=== PATIENT | male | born 1955 | race Caucasian/White ===

== ENCOUNTER 2017-05-16 06:49 | Day surgery (SDC) | payer BC ==
[2017-05-11 13:30] VITALS: BMI 21.2
[2017-05-16] MEDS ORDERED: Iodixanol 320 MG/ML 200 ML BOTTLE IV ONE (07:01)
[2017-05-16] MEDS ORDERED: Iodixanol 320 mg/ml 150 ml Bottle IV ONE (07:01)
[2017-05-16] MEDS ORDERED: Lidocaine 2% Inj (20ml) ONE (07:05)
[2017-05-16] MEDS ORDERED: Iodixanol 320 MG/ML 100 ML BOTTLE IV ONE (07:06)
[2017-05-16] MEDS ORDERED: Midazolam 2 MG/2 ML VIAL ONE ×3 (07:06→08:25)
[2017-05-16] MEDS ORDERED: Nitroglycerin 50mg in D5W 50 MG/250 ML BOTTLE IV ONE (07:06)
[2017-05-16 07:19] LABS: BASO # 0.02 K/mm3 (0.0-2.0); BASO % 0.3 % (0.0-3.0); EOS # 0.1 (0.0-0.7); EOS % 1.5 % (1.5-5.0); GRAN # 4.95 (1.4-6.5); LYMPH # 1.9 (1.2-3.4); LYMPH % 25.2 % (22.0-35.0); MEAN CELL VOLUME 83.2 fl (80.0-105.0); MEAN CORPUSCULAR HEMOGLOBIN 27.6 pg (25.0-35.0); MEAN CORPUSCULAR HGB CONC 33.2 g/dl (31.0-37.0); MEAN PLATELET VOLUME 11.1 fl (7.0-11.0); MONO # 0.4 (0.1-0.6); PLATELET COUNT 270 10^3/uL (120.0-450.0); RBC 4.71 10^6/uL (3.5-6.1); RED CELL DISTRIBUTION WIDTH 13.5 % (11.5-14.5); WHITE BLOOD COUNT 7.4 10^3/ul (4.5-11.0)
[2017-05-16 07:27] LABS: INR 0.99 (0.93-1.08); PARTIAL THROMBOPLASTIN TIME 28.6 Seconds (23.7-30.8); PROTHROMBIN TIME 10.7 Seconds (9.9-11.8)
[2017-05-16 07:30] LABS: BLOOD UREA NITROGEN 26 mg/dL (7-21); CALCIUM 9.7 mg/dL (8.4-10.5); GFR AFRICAN-AMERICAN > 60; GFR NON-AFRICAN AMERICAN > 60
[2017-05-16] MEDS ORDERED: Oxycodone/Acetaminophen 5/325 mg Tab PO PRN (10:28)
[2017-05-16] MEDS ORDERED: Sodium Chloride 0.45% 1,000 ML IV SCH (10:30)
[2017-05-16 11:03] VITALS: TEMP 98.6; O2SAT 99
[2017-05-16 13:02] VITALS: PULSE 76; RESP 18
[2017-05-16 15:36] VITALS: BP 128/76
--- NOTE | 2017-05-16 20:02 | VASCULAR ---
PROCEDURE: 1. Abdominal aortogram and bilateral lower extremity runoff with left selective views. 2. Long segment left SFA silver Hawk atherectomy, drug-eluting balloon angioplasty, and stent/stent graft placement HISTORY: Diabetes. Ischemic ulceration left great toe. Severe PVD. PHYSICIAN(S): Felipe Ochoa M.D. TECHNIQUE: The relative risks and indications of the procedure were explained to the patient and consent obtained. The patient was hydrated prior to the procedure and the appropriate labs drawn. The patient was placed supine on the arteriogram table and the right groin prepped and draped in the usual sterile fashion. Conscious sedation and monitoring were provided throughout the procedure by a nurse. Via a right common femoral artery approach, a 5 Croatian sheath was placed in the right groin. Through the sheath and over a guidewire, a 5 Croatian flush catheter was placed in the abdominal aorta at the level of the renal arteries and a PA DSA abdominal aortogram performed. The catheter was pulled down to the aortic bifurcation and bilateral oblique DSA pelvic arteriograms performed. Overlapping bilateral lower extremity DSA arteriograms were obtained from the inguinal ligaments to the ankles A 0.035 angled Glidewire was advanced over the bifurcation and placed in the proximal left profunda femoral artery.. A 7 Croatian 45 cm destination sheath was placed in the left external iliac artery.. The long segment left SFA occlusion was crossed rather easily with 6 Croatian Wildcat catheter. 0.014 support wire was placed in the proximal left peroneal artery. Heparin 6000 units IV and nitroglycerin in 250 mcg aliquots were given. Long segment silver Hawk atherectomy of the left SFA was performed with an LX catheter. 4 passes were performed. Antegrade flow was established with a suboptimal angiographic result. The left SFA was dilated with overlapping 6 and 7 mm drug-eluting balloons. A suboptimal result was obtained with slow antegrade flow. 7 mm x 10 cm Viabahn stent graft was deployed at the origin of the left SFA. A dissection was seen at the distal end of the stent. Subsequently a 6.5 by 100 mm Supera stent was deployed in the proximal to mid left SFA. Once again there was a narrowing versus thrombus at the distal end of the stent. Finally a 6.0 x 150 Viabahn stent graft was deployed in the mid left SFA. The stent/stent grafts were dilated with a 7 mm balloon. Completion angiograms were obtained. The sheath was removed hemostasis obtained with a Perclose device. The patient tolerated the procedure well. FINDINGS: There is a single right renal artery and 2 left renal arteries present which widely patent. Aorta is calcified and patent. The aortic bifurcation is patent. The common external iliac arteries are patent on two views. The internal iliac arteries are diseased but patent. Right lower extremity: The right common femoral artery is patent. The right profunda femoral artery is patent. The right superficial femoral artery is smoothly calcified and patent without radiographically significant stenosis. The right popliteal artery is patent and continuous. There is moderate to severe right trifurcation and tibial occlusive disease. Right anterior tibial artery is calcified and fill slowly. It appears to be continuous. The right posterior tibial artery appears to occlude in its mid segment. Left lower extremity: Left common femoral artery is patent. The left profunda femoral artery is hypertrophied.. There is a long segment occlusion of the left SFA 2 cm from its origin. The left SFA reconstitutes in the adductor canal. To mild stenoses of the left popliteal artery above the knee is noted. The left popliteal artery is continuous. Once again there is severe left trifurcation and tibial occlusive disease. Left posterior tibial artery occludes in its mid segment. The left peroneal artery occludes its mid segment. The left anterior tibial artery is calcified but continuous. The left dorsalis pedis artery is calcified small but patent. There is severe pedal occlusive disease. At the arch is not opacified. Small collaterals are present.. IMPRESSION: 1.Successful long segment left SFA recanalization utilizing silver Hawk atherectomy, drug-eluting balloon angioplasty, and stent/stent graft placement as described above. 2. 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
== END 2017-05-16 15:30 | disposition home or self-care (01) ==
LOC: SDSVAS 06:49
PROVIDERS: ATTEND Radiology Vascular & Interventional Radiology
DX: L97.529 Non-pressure chronic ulcer of other part of left foot with unspecified severity (principal); I73.9 Peripheral vascular disease, unspecified; E11.621 Type 2 diabetes mellitus with foot ulcer; Z95.1 Presence of aortocoronary bypass graft; E78.5 Hyperlipidemia, unspecified
CPT/HCPCS: 36415; 37227; 75625; 75716; 80048; 85025; 85610; 85730; 99152; 99153; C1714; C1725 ×5; C1760; C1769 ×4; C1876 ×3; C1887 ×4; C1894; J0360; J0690; J1644 ×2; J2250; J2405; J3010; J7030; Q9967

== ENCOUNTER 2017-07-10 13:23 | Day surgery (SDC) | payer BC ==
[2017-07-10 15:50] VITALS: BMI 21.2
--- NOTE | 2017-07-10 15:50 | CP.SDSHP ---
<Saulo Sagastume - Last Filed: 07/10/17 17:33> Same Day Surgery H & P - History Proposed Procedure: left hallux amputation Pre-Op Diagnosis: left hallux osteomyelitis - Previous Medical/Surgical History Cardiac: Hypertension, ASHD/CAD Endocrine/Metabolic: Thyroid Disease Pain: 0. No Pain - Allergies Allergies: Allergies No Known Allergies Allergy (Verified 08/03/13 09:21) - Physical Exam Vital Signs: Vital Signs 07/10/17 14:36 Temperature 98.6 F Pulse Rate 74 Respiratory 18 Rate Blood Pressure 173/80 H O2 Sat by Pulse 97 Oximetry Mental Status: Alert & Oriented x3 - Impression Impression: Pt was seen and examined in SDS. Pt NPO status was confirmed. All Pre-op testing and clearance was in the chart. Pt has exhausted all conservative treatment at this time and is opting for surgical intervention. Pt was explained procedure and post-operative course. All pt's questions were answered to satisfaction. No guarantees were made. Pt understands all risks, benefits and complications of procedure. Pt will follow-up with Dr. Alva - Date & Time Date: 07/10/17 Time: 16:00 Short Stay Discharge - Short Stay Discharge Admitting Diagnosis/Reason for Visit: OSTEOMYELITIS M86.12 Disposition: HOME/ ROUTINE Referrals: Jasmeet ARCE,ANICETO Soria [Primary Care Provider] - Instructions: Ciprofloxacin (By mouth), Oxycodone/Acetaminophen (By mouth) Additional Instructions (Diet, Activity): --Patient in good/stable condition for discharge home. Pt to resume medications per medical reconciliation. Resume regular diet. Please keep dressing clean, dry, & intact to surgical site, use plastic bag over bandage for showering, wear post op shoe at all times when ambulating, call clinic if you see signs of infection (redness, swelling, malodor), please make an appointment to see Dr. Alva in office/clinic within 1 week for post-op check. Progress Note/Discharge Note with Instructions: - Patient evaluated bedside in recovery s/p surgical procedure. - After surgical procedure patient in NAD - (+) Void, (+) Appetite - Capillary refill time <3s and NVSI intact. - Patient denies complaints at this time - Post operative instructions and plan of care explained to patient at length. - Pt. acknowledges understanding. - Patient stable for DC per podiatric surgery <Loc Alva - Last Filed: 07/10/17 20:07> Same Day Surgery H & P - Allergies Allergies: Allergies No Known Allergies Allergy (Verified 08/03/13 09:21) - Physical Exam Vital Signs: Vital Signs 07/10/17 07/10/17 07/10/17 14:36 17:20 17:35 Temperature 98.6 F 98.2 F 98.2 F Pulse Rate 74 65 66 Respiratory 18 14 14 Rate Blood Pressure 173/80 H 182/87 H 194/92 H O2 Sat by Pulse 97 99 99 Oximetry 07/10/17 07/10/17 07/10/17 17:50 18:15 18:48 Temperature 98.2 F 97.7 F 98 F Pulse Rate 66 71 70 Respiratory 14 20 18 Rate Blood Pressure 179/89 H 172/81 H 170/67 H O2 Sat by Pulse 99 99 99 Oximetry Attending/Attestation - Attestation I have personally seen and examined this patient.: Yes I have fully participated in the care of the patient.: Yes I have reviewed all pertinent clinical information: Yes
[2017-07-10] MEDS ORDERED: Bupivacaine 0.5% Inj(30mL) ONE (15:55)
[2017-07-10] MEDS ORDERED: Lidocaine 2% Inj (20ml) ONE (15:55)
[2017-07-10] MEDS ORDERED: Midazolam 2 MG/2 ML VIAL ONE (15:58)
[2017-07-10] MEDS ORDERED: Lidocaine 1% Inj (20ml) ONE (15:58)
[2017-07-10] MEDS ORDERED: Propofol 10 mg/ml Inj (20 ML) ONE (15:58)
[2017-07-10] MEDS ORDERED: Labetalol 5 mg/ml Inj 20ML ONE (16:49)
[2017-07-10] MEDS ORDERED: HYDROmorphone 0.5 mg/0.5 ml ISec IVP PRN (17:27)
[2017-07-10] MEDS ORDERED: Oxycodone/Acetaminophen 5/325 mg Tab PO PRN ×2 (17:29)
[2017-07-10] MEDS ORDERED: Lactated Ringer's 1,000 ML IV SCH (17:30)
[2017-07-10 17:42] VITALS: O2SAT 99
--- NOTE | 2017-07-10 18:06 | RAD ---
PROCEDURE: Left Foot Radiographs. HISTORY: s/p left foot surgery COMPARISON: Preoperative examination 05/15/2017 FINDINGS: BONES: Status post amputation left 1st digit. No acute osseous findings. JOINTS: Normal. SOFT TISSUES: Soft tissue swelling at the surgical site. OTHER FINDINGS: Incompletely visualized hardware distal left fibula. IMPRESSION: Satisfactory postoperative status.
[2017-07-10 18:51] VITALS: BP 170/67; PULSE 70; RESP 18; TEMP 98
--- NOTE | 2017-07-10 21:37 | PCM.SURG1 ---
<Saulo Sagastume - Last Filed: 07/10/17 21:34> Surgeon's Initial Post Op Note - Surgeon's Notes Surgeon: Dr. Alva DPM Supervisor Lead Burning: Dr. Saulo Sagastume DPTess PGY-1 Type of Anesthesia: MAC, Local Anesthesia Administered By: Dr. Crawford Pre-Operative Diagnosis: left hallux osteomyelitis Operative Findings: see dication. 13 cc of 1:1 .5% marcaine plain and 2% lidocaine plain, 2-0 vicryl, 3-0 nylon, chan Post-Operative Diagnosis: left hallux osteomyelitis Operation Performed: left hallux amputation secondary to osteomyelitis Specimen/Specimens Removed: bone Estimated Blood Loss: EBL {In ML}: 15 Blood Products Given: N/A Drains Used: No Drains Post-Op Condition: Good Date of Surgery/Procedure: 07/10/17 Time of Surgery/Procedure: 16:00 <Loc Alva - Last Filed: 07/11/17 07:33> Attending/Attestation - Attestation I have personally seen and examined this patient.: Yes I have fully participated in the care of the patient.: Yes I have reviewed all pertinent clinical information: Yes
--- NOTE | 2017-07-10 22:41 | OP ---
PROCEDURE DATE: 07/10/2017 PREOPERATIVE DIAGNOSIS: Left first hallux osteomyelitis. POSTOPERATIVE DIAGNOSIS: Left first hallux osteomyelitis. PROCEDURE: First hallux implication secondary to osteomyelitis. SURGEON: Loc Alva DPM CLERICAL OFFICE WORKER: Saulo Sagastume DPM TYPE OF ANESTHESIA: IV anesthesia local. ANESTHESIA ADMINISTERED BY: Lakhwinder Crawford MD INDICATION: The patient is a 62-year-old male with the above diagnosis. The patient has his all conservative treatment at this time and that would require surgical intervention. The patient signed the consent after careful explanation of risks, benefits, complications and alternatives for surgical procedure. No guarantees were given nor implied. N.p.o. status was confirmed prior to taking the patient to the OR. PREPARATION: The patient was brought in to the operating room and placed on the operating room table in a supine position. Time-out was performed for identification of the correct patient and procedure. After induction of IV sedation, the patient received a total of 12 mL of 1:1 mixture of 0.5% Marcaine plain and 2% lidocaine plain in a local block fashion to the left first hallux. The left foot was then prepped and draped in a normal sterile manner and the procedure began. No tourniquet was used during the procedure. DESCRIPTION OF PROCEDURE: Attention was then drawn to the dorsal aspect of the left first digit where racquet type incision was made circumferentially at the level distal to the first MPJ using a #15 blade. The incision was then extended down to the subcutaneous layers, down to the level of the bone using a pickup and towel clamp to stabilize the toe. The first hallux was then disarticulated from the foot at the level of the MPJ using a #15 blade and [place] [employer] scissor. The left hallux was then resected and passed from the operating field and sent to the pathology. During this time, using a fresh #15 blade, all necrotic and non-viable tissue was then excisionally divided from the surgical site. The wound was copiously flushed with sterile saline, then the capsule of the MPJ was reapproximate using a 2-0 Vicryl and simple sutures. Next, flexor hallucis longus and the extensor hallucis longus was tensioned and reapproximated together using a Vicryl 2-0 in simple sutures technique. Excess tendon was then cut using a dissecting scissors. Next, the flap was debulked using a dissecting scissors and grade #15 and pickup. All bleeders were cauterized and ligated as necessary. Next, the wound was copiously flushed with sterile saline. Next, utilizing a 2-0 Vicryl and subcutaneous tissue was reapproximated. Next, skin layers were then reapproximated and coapted using a 3-0 nylon using a horizontal mattress in simple suture technique. The skin layers were reinforced using chan along the surgical excision. The left foot was then dressed with Betadine silicic acid, 4x4 gauze, Kerlix, and Coban lightly wrapped around the entire left foot. POSTOPERATIVE CONDITION: The patient tolerated the anesthesia and procedure well and was escorted to the recovery room with the vital signs stable and neurovascular status intact to the left foot. The patient will follow up with Dr. Alva upon discharge. Saulo Sagastume DPM Loc Alva DPM MTDCristhian
--- NOTE | 2017-07-18 00:05 | CP.PCM.PN ---
Subjective - Date & Time of Evaluation Date of Evaluation: 07/17/17 Time of Evaluation: 10:45 - Subjective Subjective: Pt seen at the request of his RN for tachycardia and shaking chills. He is S/P amputation of the L 1st toe and was admitted for an infection at the surgical site,dizziness,syncope and weakness. Chart reviewed. VS: HR [id number]/min is now 116,Rectal temp is 103.6 RR is 22,BP 155/84 PMH:NIDDM,HTN,CAD,S/P Quadruple bypass,,angioplasty,PVD,S/P L lower ext. angioplasty Objective - Vital Signs/Intake and Output Vital Signs (last 24 hours): Temp Pulse Resp BP Pulse Ox 98 F 70 18 170/67 H 99 07/10/17 18:48 07/10/17 18:48 07/10/17 18:48 07/10/17 18:48 07/10/17 18:48 Assessment and Plan - Assessment and Plan (Free Text) Assessment: Tachycardia and shaking chills secondary to fever Infected surgical site Plan: IV fluids,Tylenol and cooling blanket ordered. Pt is already on antibiotic,cultures have already been done.
== END 2017-07-10 19:00 | disposition home or self-care (01) ==
LOC: SDS 13:23
PROVIDERS: ATTEND Podiatrist
DX: E11.69 Type 2 diabetes mellitus with other specified complication (principal); M86.172 Other acute osteomyelitis, left ankle and foot; I25.10 Atherosclerotic heart disease of native coronary artery without angina pectoris; I10 Essential (primary) hypertension; E03.9 Hypothyroidism, unspecified
CPT/HCPCS: 28820; 73630; 88304; 88311; J1170; J2250; J2704; J3010; J7120 ×2

== ENCOUNTER 2017-07-17 11:54 | Inpatient (IN) | payer BC ==
--- NOTE | 2017-07-17 12:19 | ED PDOC ---
Arrival/HPI - General Historian: Patient, Spouse - History of Present Illness Time/Duration: Prior to Arrival Symptom Onset: Sudden Symptom Course: Improving Quality: Other (dizzy) Severity Level: Moderate Activities at Onset: Rest Context: Sitting <Jaylin Srinivasan - Last Filed: 07/17/17 14:21> <HeideMaryellen - Last Filed: 07/17/17 15:14> - General Chief Complaint: Syncope Time Seen by Provider: 07/17/17 11:56 - History of Present Illness Narrative History of Present Illness (Text): 07/17/17 12:15 MANNEQUIN MOLDER from wound care center 62M w/PMH for L foot infection s/p hallux amputation, DM, HTN, CAD s/p CABG evaluated s/p MANNEQUIN MOLDER in wound care center. Pt reports feeling generally weak, had amputation last Sunday, took Percocet at 10am today, arrived to his 10:45 wound care appointment without incident. Had wound cleaned. After transfer to a wheelchair for departure, pt reports he felt dizzy- room was spinning around him, reports facial color went garcia. Pt was brought to ED for further evaluation and possible admission for L foot infection. Denies N/V/F/C, SOB, CP , palpitations, SUN, vision changes, changes to bowel or bladder habits, numbness or tingling of extremities, other complaints. PMH: Left foot infection, DM, HTN, CAD PSH: CABG (4 vessel), L hallux amputation, angioplasty of LLE All: NKDA SH: Denies tobacco, ETOH or illicit drug use PMD: [facility] (Jaylin Srinivasan) Past Medical History - Provider Review Nursing Documentation Reviewed: Yes - Infectious Disease Hx of Infectious Diseases: None - Tetanus Immunization Tetanus Immunization: Unknown - Cardiac Hx Pacemaker: No - Neurological Hx Paralysis: No - Hematological/Oncological Hx Blood Transfusions: No - Musculoskeletal/Rheumatological Hx Musculoskeletal Disorders: No - Psychiatric Hx Emotional Abuse: No Hx Physical Abuse: No Hx Substance Use: No - Surgical History Hx Open Heart Surgery: Yes (09/27/12) Hx Orthopedic Surgery: Yes - Anesthesia Hx Anesthesia Reactions: No Hx Malignant Hyperthermia: No - Suicidal Assessment Feels Threatened In Home Enviroment: No <Jaylin Srinivasan - Last Filed: 07/17/17 14:21> Family/Social History - Physician Review Nursing Documentation Reviewed: Yes Family/Social History: No Known Family HX Hx Alcohol Use: No Hx Substance Use: No Hx Substance Use Treatment: No <Jaylin Srinivasan - Last Filed: 07/17/17 14:21> Allergies/Home Meds <Jaylin Srinivasan - Last Filed: 07/17/17 14:21> <Maryellen Jaeger - Last Filed: 07/17/17 15:14> Allergies/Adverse Reactions: Allergies No Known Allergies Allergy (Verified 08/03/13 09:21) Home Medications: Home Meds Medication Instructions Recorded Confirmed Tamsulosin [Flomax] 0.4 mg PO DAILY 08/03/13 07/10/17 Aspirin [Ecotrin] 81 mg PO DAILY 05/15/17 07/03/17 Glimepiride [Amaryl] 4 mg PO DAILY 05/15/17 07/10/17 Insulin Glargine,Hum.rec.anlog 30 unit SQ HS 05/15/17 07/10/17 [Toujeo Solostar] Levothyroxine [Synthroid] 100 mcg PO QAM 05/15/17 07/10/17 SITagliptin [Januvia] 100 mg PO DAILY 05/15/17 07/10/17 Ciprofloxacin [Cipro] 500 mg PO BID 07/03/17 07/10/17 oxyCODONE/Acetaminophen 1/2TAB 0.5 ea PO Q6 MDD 4 07/10/17 07/10/17 [Percocet 5-325 mg HALF TAB] Review of Systems - Physician Review All systems were reviewed & negative as marked: Yes - Review of Systems Constitutional: Fatigue. absent: Normal, Fevers Eyes: absent: Vision Changes ENT: Normal. absent: Sore Throat, Rhinorrhea Respiratory: Normal. absent: SOB, Cough Cardiovascular: Syncope (near). absent: Normal, Chest Pain, Palpitations Gastrointestinal: Normal. absent: Abdominal Pain, Constipation, Diarrhea, Nausea, Vomiting, Appetite Changes Genitourinary Male: Normal. absent: Hematuria Musculoskeletal: Other (L foot pain ). absent: Normal Skin: Other (infection of L foot). absent: Normal Neurological: Dizziness. absent: Normal, Headache, Focal Weakness, Speech Changes, Facial Droop Endocrine: Normal. absent: Diaphoresis <Jaylin Srinivasan - Last Filed: 07/17/17 14:21> Physical Exam Appearance: Positive for: Non-Toxic, Comfortable Pain Distress: None Mental Status: Positive for: Alert and Oriented X 3 Finger Stick Blood Glucose: 158 - Systems Exam Head: Present: Atraumatic, Normocephalic Extroacular Muscles: Present: EOMI Conjunctiva: Present: Normal Mouth: Present: Moist Mucous Membranes Nose (External): Present: Atraumatic Neck: Present: Normal Range of Motion Respiratory/Chest: Present: Clear to Auscultation, Good Air Exchange. No: Respiratory Distress, Accessory Muscle Use Cardiovascular: Present: Regular Rate and Rhythm, Normal S1, S2. No: Murmurs Abdomen: Present: Normal Bowel Sounds. No: Tenderness, Distention, Peritoneal Signs Back: Present: Normal Inspection. No: CVA Tenderness Upper Extremity: Present: Normal Inspection. No: Cyanosis, Edema Lower Extremity: No: Normal Inspection (Left foot with dressing in place - C/D/I ), Edema, Tenderness Neurological: Present: GCS=15, CN II-XII Intact, Speech Normal Skin: Present: Warm, Dry, Pale, Other (Well healed midline chest incision). No : Rashes Psychiatric: Present: Alert, Oriented x 3, Normal Insight, Normal Concentration <Jaylin Srinivasan - Last Filed: 07/17/17 14:21> Vital Signs Reviewed: Yes Temperature: Afebrile Blood Pressure: Hypotensive Pulse: Regular Respiratory Rate: Normal <Maryellen Jaeger - Last Filed: 07/17/17 15:14> Vital Signs Temp Pulse Resp BP Pulse Ox 07/17/17 14:35 98.6 F 72 17 106/78 100 07/17/17 13:23 98.6 F 78 17 105/58 L 100 Medical Decision Making <Jaylin Srinivasan - Last Filed: 07/17/17 14:21> <Maryellen Jaeger - Last Filed: 07/17/17 15:14> ED Course and Treatment: 07/17/17 12:22 ED attending discussed case with Dr. Alva- reports that pt has purulent drainage from left hallux amputation site with erythema, will likely need IV ABx. 07/17/17 12:23 Will order labs to evaluate for infection, CT brain & cardiac iso for near syncope. (Jaylin Srinivasan) A 62 year old male with fatigue and dizziness and infected wound. In agreement with resident note, which includes further HPI details. Patient was seen and evaluated with resident, came up with plan and treatment together. 07/17/17 14:35 Patient with osteomyelitis s/p surgery with persisting infection, needing iv antibiotics as per Dr. Alva's eval. Patient also with near syncopal episode which will need further eval; initial CE negative; ekg nondiagnostic; will need placement on tele for further monitoring, eval, and treatment. Case discussed with Dr. Couch, as patient is a [facility] patient. 07/17/17 15:10 (Maryellen Jaeger) - Lab Interpretations Lab Results: 07/17/17 12:35 07/17/17 12:35 Lab Results 07/17/17 12:35: Sodium 140, Potassium 4.8, Chloride 100, Carbon Dioxide 27, Anion Gap 18, BUN 18, Creatinine 1.2, Est GFR ( Amer) > 60, Est GFR (Non- Af Amer) > 60, Random Glucose 170 H, Calcium 9.7, Total Bilirubin 1.0, AST 27, ALT 28, Alkaline Phosphatase 91, Lactate Dehydrogenase 340, Total Creatine Kinase 47, Troponin I < 0.01, Total Protein 8.1, Albumin 4.2, Globulin 3.9, Albumin/Globulin Ratio 1.1 07/17/17 12:35: WBC 10.3 D, RBC 3.72, Hgb 9.8 L D, Hct 30.4 L, MCV 81.7, MCH 26.3, MCHC 32.2, RDW 14.1, Plt Count 254, MPV 10.4, Gran % 76.0 H, Lymph % (Auto ) 15.0 L, [place] % (Auto) 8.2 H, Eos % (Auto) 0.6 L, Baso % (Auto) 0.2, Gran # 7.82 H, Lymph # 1.5, [place] # 0.8 H, Eos # 0.1, Baso # 0.02 07/17/17 10:17: Urine Color Yellow, Urine Appearance Clear, Urine pH 6.0, Ur Specific [place] 1.025, Urine Protein Trace H, Urine Glucose (UA) Negative, Urine Ketones Negative, Urine Blood Negative, Urine Nitrate Negative, Urine Bilirubin Negative, Urine Urobilinogen 0.2, Ur Leukocyte Esterase Negative, Urine RBC 0 - 2, Urine WBC 2 - 5, Ur Epithelial Cells 1 - 3, Urine Bacteria Few - RAD Interpretation Radiology Orders: 07/17/17 12:14 Brain [HEAD W/O CONTRAST] [CT] Stat 07/17/17 12:48 CHEST TWO VIEWS (PA/LAT) [RAD] Stat - EKG Interpretation EKG Interpretation (Text): 07/17/17 15:11 NSR @ 62; normal intervals; normal axis; no MIKE; <1/[address] dep inferiorly; unable to view old ekg. (Maryellen Jaeger) - Medication Orders Current Medication Orders: Aspirin (Ecotrin) 81 mg PO DAILY MADHU Last Admin: 07/17/17 14:16 Dose: Glimepiride (Amaryl) 4 mg PO DAILY MADHU Piperacillin Sod/Tazobactam Sod (Zosyn 3.375 In Ns 100ml) 100 mls @ 200 mls/hr IVPB Q8 MADHU PRN Reason: Protocol Stop: 07/17/17 22:29 Last Admin: 07/17/17 14:15 Dose: Insulin Human Lispro (Humalog High) 0 units SC ACHS MADHU PRN Reason: Protocol Levothyroxine Sodium (Synthroid) 100 mcg PO QAM MADHU Oxycodone/Acetaminophen (Percocet 5/325 Mg Tab) 0.5 tab PO Q6 MADHU Stop: 07/20/17 18:01 Sitagliptin Phosphate (Januvia) 100 mg PO DAILY MADHU Last Admin: 07/17/17 14:17 Dose: Tamsulosin HCl (Flomax) 0.4 mg PO DAILY MADHU Last Admin: 07/17/17 14:17 Dose: Discontinued Medications Vancomycin HCl 1 gm/ Sodium (Chloride) 250 mls @ 133.333 mls/hr IV STAT STA PRN Reason: Protocol Stop: 07/17/17 14:40 Last Admin: 07/17/17 13:31 Dose: 133.333 mls/hr eMAR Start Stop Document 07/17/17 13:31 IT (Rec: 07/17/17 13:31 IT [id number]) Intravenous Solution Start Date 07/17/17 Start Time 13:31 End Date 07/17/17 End time 15:31 Total Infusion Time 120 Piperacillin Sod/Tazobactam Sod (Zosyn 3.375 In Ns 100ml) 100 mls @ 200 mls/hr IVPB STAT STA PRN Reason: Protocol Stop: 07/17/17 13:18 Last Admin: 07/17/17 12:55 Dose: 200 mls/hr eMAR Start Stop Document 07/17/17 12:55 IT (Rec: 07/17/17 12:56 IT [id number]) Intravenous Solution Start Date 07/17/17 Start Time 12:55 End Date 07/17/17 End time 13:25 Total Infusion Time 30 - PA / DAIRY FEED WORKER / Resident Statement / has reviewed & agrees with the documentation as recorded. / has examined the patient and agrees with the treatment plan. <Maryellen Jaeger - Last Filed: 07/17/17 15:14> Disposition/Present on Arrival - Present on Arrival Any Indicators Present on Arrival: Yes History of DVT/PE: No History of Uncontrolled Diabetes: Yes Urinary Catheter: No History Surgical Site Infection Following: None - Disposition Have Diagnosis and Disposition been Completed?: Yes Disposition Time: 14:21 Patient Plan: Admission <Jaylin Srinivasan - Last Filed: 07/17/17 14:21> - Present on Arrival Any Indicators Present on Arrival: No - Disposition Have Diagnosis and Disposition been Completed?: Yes Disposition Time: 13:00 Patient Plan: Admission, Telemetry <Maryellen Jaeger - Last Filed: 07/17/17 15:14> - Disposition Diagnosis: Infection of left foot, Near syncope Disposition: HOSPITALIZED Patient Problems: Current Active Problems Problem Status Onset Infection of left foot Acute Near syncope Acute Condition: FAIR
[2017-07-17 12:42] LABS: BASO # 0.02 K/mm3 (0.0-2.0); BASO % 0.2 % (0.0-3.0); EOS # 0.1 (0.0-0.7); EOS % 0.6 % (1.5-5.0); GRAN # 7.82 (1.4-6.5); HEMATOCRIT 30.4 % (42.0-52.0); LYMPH # 1.5 (1.2-3.4); MEAN CELL VOLUME 81.7 fl (80.0-105.0); MEAN CORPUSCULAR HEMOGLOBIN 26.3 pg (25.0-35.0); MEAN CORPUSCULAR HGB CONC 32.2 g/dl (31.0-37.0); MEAN PLATELET VOLUME 10.4 fl (7.0-11.0); MONO # 0.8 (0.1-0.6); MONO % 8.2 % (1.0-6.0); RED CELL DISTRIBUTION WIDTH 14.1 % (11.5-14.5); WHITE BLOOD COUNT 10.3 10^3/ul (4.5-11.0)
[2017-07-17 12:48] LABS: ALB/GLOB RATIO 1.1 (1.1-1.8); ALKALINE PHOSPHATASE 91 U/L (38-126); ALT/SGPT 28 U/L (7-56); AST/SGOT 27 U/L (17-59); BLOOD UREA NITROGEN 18 mg/dL (7-21); CALCIUM 9.7 mg/dL (8.4-10.5); CARBON DIOXIDE 27 mmol/L (21-33); CHLORIDE 100 mmol/L (98-107); GFR AFRICAN-AMERICAN > 60; GLUCOSE,RANDOM 170 mg/dL (70-110); POTASSIUM 4.8 mmol/L (3.6-5.0); SODIUM 140 mmol/L (132-148); TOTAL PROTEIN 8.1 g/dL (5.8-8.3)
[2017-07-17] MEDS ORDERED: Piperacillin/Tazobact 3.375 gm 100 ML IVPB STA (12:49)
[2017-07-17 13:01] LABS: TROPONIN I < 0.01 ng/mL
[2017-07-17 13:36] LABS: URINE BILIRUBIN NEGATIVE (NEGATIVE); URINE BLOOD NEGATIVE (NEGATIVE); URINE GLUCOSE (UA) NEGATIVE (NEGATIVE); URINE KETONE NEGATIVE (NEGATIVE); URINE LEUKOCYTE ESTERASE NEGATIVE Leu/uL (NEGATIVE); URINE PROTEIN TRACE mg/dL (<30 mg/dL); URINE UROBILINOGEN 0.2 E.U./dL (<1 E.U./dL)
[2017-07-17 13:37] LABS: URINE APPEARANCE CLEAR (CLEAR); URINE COLOR YELLOW (YELLOW)
[2017-07-17 13:53] LABS: URINE BACTERIA FEW (NEG); URINE RBC 0 - 2 /hpf (0-2)
[2017-07-17] MEDS ORDERED: Piperacillin/Tazobact 3.375 gm 100 ML IVPB SCH (14:00)
--- NOTE | 2017-07-17 17:02 | RAD ---
HISTORY: LE infection COMPARISON: No prior. TECHNIQUE: Chest PA and lateral FINDINGS: LUNGS: No active pulmonary disease. PLEURA: No significant pleural effusion identified. No pneumothorax apparent. CARDIOVASCULAR: Status post CABG. Normal heart size. No congestive change. OSSEOUS STRUCTURES: No significant abnormalities. VISUALIZED UPPER ABDOMEN: Normal. OTHER FINDINGS: None. IMPRESSION: No active disease.
--- NOTE | 2017-07-17 17:14 | US ---
PROCEDURE: Bilateral carotid artery duplex ultrasound HISTORY: Carotid stenosis syncope. PHYSICIAN(S): Felipe Ochoa MD. TECHNIQUE: Duplex sonography and color-flow Doppler were used to evaluate the carotid bifurcations and limited segments of the vertebral arteries bilaterally. FINDINGS: There is mild smooth heterogeneous plaque noted at the carotid bifurcations bilaterally. The peak systolic velocity in the proximal right internal carotid artery is 100 cm/sec. This corresponds to a 20 to 39% proximal right ICA stenosis. Normal systolic velocities are noted in the proximal right external carotid artery. The right vertebral artery is not visualized and may be occluded The peak systolic velocity in the proximal left internal carotid artery is 97 cm/sec. This corresponds to a 20 to 39% proximal left ICA stenosis. Normal systolic velocities are noted in the proximal left external carotid artery. There is antegrade flow in the dominant left vertebral artery. IMPRESSION: 1. Bilateral 20-39% proximal ICA stenoses. 2. Antegrade flow in the left vertebral artery. The right vertebral artery is not visualized and may be occluded
[2017-07-17] MEDS: Oxycodone/Acetaminophen 5/325 mg Tab PO SCH (18:02)
[2017-07-17] MEDS: Insulin Lispro (HUMAlog) HIGH Coverage SC SCH ×2 (18:03→22:00)
[2017-07-17 18:19] VITALS: BMI 20.9
[2017-07-17] MEDS: Vancomycin 1gm in NS 250ml 1 GM/250 ML BAG IVPB SCH (19:32)
--- NOTE | 2017-07-17 21:03 | HP ---
HISTORY OF PRESENT ILLNESS: The patient is 62 years old, who was referred by Dr. Alva for admission. On his way from wound care center to the ER, he fainted and felt dizzy and so rapid response was called and he was brought to emergency room. According to the patient, he is feeling very weak. He had amputation done almost a week ago. He was here for followup in wound care center. When he was being transferred to wheelchair was accompanying and saw that he was very pale and minimally responsive, so he was brought to emergency room for further evaluation. He has no history of fever or chills, no history of nausea or vomiting, no history of hemoptysis or hematemesis. PAST MEDICAL HISTORY: Significant for recent left fourth toe amputation; non-insulin dependent diabetes; hypertension; coronary artery disease, status post angioplasty; he has had quadruple bypass; history of peripheral vascular disease, status post left lower extremity angioplasty. ALLERGIES: HE IS NOT ALLERGIC TO ANY MEDICATION. MEDICATION AT HOME: He is on Percocet, Flomax 0.4 daily, Januvia 100 mg daily, levothyroxine 100 mcg daily, glimepiride 4 mg daily, aspirin 81 daily, Toujeo 30 units at bedtime, Cipro 500 twice a day. SOCIAL HISTORY: He is , lives with his . Denies smoking, drinking or alcohol use. REVIEW OF SYSTEMS: Significant for generalized weakness. PHYSICAL EXAMINATION: GENERAL: He is awake, alert, oriented, communicative. VITAL SIGNS: He is afebrile, pulse 72, respirations 17, blood pressure 106/70. LUNGS: Bilateral fair airflow. No rhonchi or crackle. HEART: S1 and S2 audible. ABDOMEN: Soft and nontender. No rebound, no guarding. NEUROLOGIC: The patient is awake, alert, oriented and communicative. LABORATORY DATA: WBC is 10.3, hemoglobin 9.8, hematocrit 30.4, platelet of 254. Chemistry: Sodium 140, potassium 4.8, chloride 100, CO2 of 27, BUN 18, creatinine 1.2, blood sugar of 170. Urinalysis is trace protein. ASSESSMENT: 1. Infected left surgical wound. 2. Syncope. 3. Hypertension. 4. Insulin-dependent diabetes. 5. Hyperlipidemia. 6. Coronary artery disease. 7. Peripheral vascular disease. PLAN: The patient will be admitted. Blood cultures and urine cultures are sent. We will start him empirically on IV antibiotic, I will order for carotid Doppler, order for CT scan of the brain and monitor his blood sugar, out to bed to chair. We will reevaluate the patient in a.m. Letty Couch MD
--- NOTE | 2017-07-17 22:03 | CARD ---
APPROVED REPORT EKG Measurement Heart [id number] CT [id number] <Conclusion> Normal sinus rhythm Normal ECG
[2017-07-17] MEDS: Sodium Chloride 0.45% 1,000 ML IV SCH (23:11)
[2017-07-17] MEDS: Piperacillin/Tazobact 3.375 gm 100 ML IVPB SCH (23:16)
--- NOTE | 2017-07-18 05:07 | CP.PCM.PN ---
Subjective - Date & Time of Evaluation Date of Evaluation: 07/17/17 Time of Evaluation: 23:58 - Subjective Subjective: Pt seen at the request of his RN for tachycardia and shaking chills. He is S/P amputation of the L 1st toe and was admitted for an infection at the surgical site,dizziness,syncope and weakness. Chart reviewed. VS: HR [id number]/min is now 116,Rectal temp is 103.6 RR is 22,BP 155/84 PMH:NIDDM,HTN,CAD,S/P Quadruple bypass,angioplasty,PVD,S/P L lower ext. angioplasty Objective - Vital Signs/Intake and Output Vital Signs (last 24 hours): Temp Pulse Resp BP Pulse Ox 98.5 F 93 H 20 117/63 97 07/18/17 02:00 07/18/17 02:00 07/18/17 02:00 07/18/17 02:00 07/17/17 23:35 - Medications Medications: Current Medications Aspirin (Ecotrin) 81 mg PO DAILY [facility] Last Admin: 07/17/17 14:16 Dose: Not Given Glimepiride (Amaryl) 4 mg PO DAILY [facility] Piperacillin Sod/Tazobactam Sod (Zosyn 3.375 In Ns 100ml) 100 mls @ 200 mls/hr IVPB Q6 [facility] PRN Reason: Protocol Stop: 07/25/17 00:01 Last Admin: 07/17/17 23:16 Dose: 200 mls/hr Vancomycin HCl (Vancomycin 1gm) 1 gm in 250 mls @ 167 mls/hr IVPB Q12H [facility] PRN Reason: Protocol Last Admin: 07/17/17 19:32 Dose: 167 mls/hr Sodium Chloride (Sodium Chloride 0.45%) 1,000 mls @ 100 mls/hr IV .Q10H [facility] Last Admin: 07/17/17 23:11 Dose: 100 mls/hr Insulin Human Lispro (Humalog High) 0 units SC ACHS [facility] PRN Reason: Protocol Last Admin: 07/17/17 22:00 Dose: Not Given Levothyroxine Sodium (Synthroid) 100 mcg PO QAM [facility] Oxycodone/Acetaminophen (Percocet 5/325 Mg Tab) 0.5 tab PO Q6 [facility] Stop: 07/20/17 18:01 Last Admin: 07/18/17 00:00 Dose: Not Given Sitagliptin Phosphate (Januvia) 100 mg PO DAILY [facility] Last Admin: 07/17/17 14:17 Dose: Not Given Tamsulosin HCl (Flomax) 0.4 mg PO DAILY [facility] Last Admin: 07/17/17 14:17 Dose: Not Given - Constitutional Appears: Toxic, Cachectic - Head Exam Head Exam: ATRAUMATIC, NORMAL INSPECTION, NORMOCEPHALIC - Eye Exam Eye Exam: Normal appearance, PERRL - ENT Exam ENT Exam: Mucous Membranes Dry - Neck Exam Neck Exam: Normal Inspection - Respiratory Exam Respiratory Exam: Clear to Ausculation Bilateral, NORMAL BREATHING PATTERN - Cardiovascular Exam Cardiovascular Exam: Tachycardia - GI/Abdominal Exam GI & Abdominal Exam: Soft, Normal Bowel Sounds. absent: Tenderness - Extremities Exam Extremities Exam: absent: Calf Tenderness Additional comments: Has a dressing on the L foot - Neurological Exam Neurological Exam: Alert, Awake, Oriented x3 - Psychiatric Exam Psychiatric exam: Normal Affect - Skin Skin Exam: Dry (skin is very warm to touch), Warm Assessment and Plan - Assessment and Plan (Free Text) Assessment: Tachycardia and shaking chills secondary to fever Infected surgical site Plan: Plan: IV fluids,Tylenol and cooling blanket ordered. Pt is already on antibiotic,cultures have already been done.
[2017-07-18] MEDS: Piperacillin/Tazobact 3.375 gm 100 ML IVPB SCH ×3 (06:16→19:17)
[2017-07-18] MEDS: Oxycodone/Acetaminophen 5/325 mg Tab PO SCH ×4 (06:19→19:17)
[2017-07-18] MEDS: Vancomycin 1gm in NS 250ml 1 GM/250 ML BAG IVPB SCH ×2 (07:11→20:37)
--- NOTE | 2017-07-18 08:26 | CP.PCM.CON ---
<Austin Yeager - Last Filed: 07/18/17 08:22> History of Present Illness - History of Present Illness History of Present Illness: Patient is a 62 year old male who is seen at bedside for a left infected foot 8 days s/p partial first ray resection of left foot. Patient was seen in the wound care center yesterday for his regularly scheduled appointment and underwent a syncopal episode before leaving. He was subsequently admitted to the hospital through the ED for monitoring. Patient states that he is feeling much better today. He denies any increased pain to his foot. He denies any further pedal complaints at this time. He denies lightheadedness, n/v/f/c/cp/ sob. Review of Systems - Review of Systems Review of Systems: ROS unremarkable outside of HPI Past Patient History - Infectious Disease Hx of Infectious Diseases: None - Tetanus Immunizations Tetanus Immunization: Unknown - Past Social History Smoking Status: Never Smoked - CARDIAC Hx Cardiac Disorders: Yes Hx Angina: Yes Hx Cardia Arrhythmia: No Hx Circulatory Problems: Yes Hx Congestive Heart Failure: No Hx Heart Murmur: No Hx Heart Transplant: No Hx Hypercholesterolemia: Yes Hx Hypertension: Yes Hx Internal Defibrillator: No Hx Mitral Valve Prolapse: No Hx Pacemaker: No Hx Peripheral Edema: No Hx Peripheral Vascular Disease: No - PULMONARY Hx Respiratory Disorders: No Hx Asthma: No Hx Bronchitis: No Hx Chronic Obstructive Pulmonary Disease (COPD): No Hx Emphysema: No Hx Pneumonia: No Hx Respiratory Aspiration: No Hx Respiratory Tract Infection: No Hx Sleep Apnea: No Hx Tuberculosis: No - NEUROLOGICAL Hx Neurological Disorder: No Hx Alzheimer's Disease: No HX Cerebrovascular Accident: No Hx Dementia: No Hx Dizziness: No Hx Meningitis: No Hx Migraine: No Hx Parkinson's Disease: No Hx Seizures: No Hx Transient Ischemic Attacks (TIA): No - HEENT Hx HEENT Problems: No Hx Blind: No Hx Cataracts: No Hx Deafness: No Hx Difficulty Chewing: No Hx Epistaxis: No Hx Glaucoma: No Hx Macular Degeneration: No - RENAL Hx Chronic Kidney Disease: No Hx Dialysis: No Hx Kidney Stones: No Hx Neurogenic Bladder: No Hx Pyelonephritis: No Hx Renal (Kidney) Cancer: No Hx Renal Failure: No - ENDOCRINE/METABOLIC Hx Endocrine Disorders: No Hx Adrenal Cancer: No Hx Diabetes Insipidus: No Hx Diabetes Mellitus Type 1: No Hx Diabetes Mellitus Type 2: No Hx Hyperthyroidism: No Hx Hypothyroidism: No Hx Systemic Lupus Erythematosus: No - HEMATOLOGICAL/ONCOLOGICAL Hx Blood Disorders: No Hx AIDS: No Hx Anemia: No Hx Cancer: No Hx Chemotherapy: No Hx Cirrhosis: No Hx Hemophilia: No Hx Hepatitis A: No Hx Hepatitis B: No Hx Hepatitis C: No Hx Human Immunodeficiency Virus (HIV): No Hx Metastesis: No Hx Shingles: No Hx Sickle Cell Disease: No Hx Unexplained Bleeding: No - INTEGUMENTARY Hx Dermatological Problems: No Hx Basil Cell: No Hx Eczema: No Hx Melanoma: No Hx Psoriasis: No Hx Squamous Cell: No - MUSCULOSKELETAL/RHEUMATOLOGICAL Hx Falls: No - GASTROINTESTINAL Hx Gastrointestinal Disorders: No Hx Colostomy: No Hx Crohn's Disease: No Hx Diverticulitis: No Hx Gall Bladder Disease: No Hx Gastroesophageal Reflux: No Hx Ileostomy: No Hx Liver Failure: No Hx Pancreatitis: No HX Swallowing Problems: No Hx Ulcer: No - GENITOURINARY/GYNECOLOGICAL Hx Genitourinary Disorders: No Hx Hematuria: No Hx Incontinence: No Hx Prostate Problems: Yes (turp) Hx Sexually Transmitted Disorders: No Hx Urinary Tract Infection: No - PSYCHIATRIC Hx Substance Use: No - SURGICAL HISTORY Hx Surgeries: Yes (yes) Hx Amputation: Yes (last week had 2nd toe amputated Lfoot) Hx Appendectomy: No Hx Cardiac Catheterization: No Hx Cholecystectomy: No Hx Coronary Stent: No Hx Gastric Bypass Surgery: No Hx Hysterectomy: No Hx Joint Replacement: No Hx Kidney Transplant: No Hx Liver Transplant: No Hx Mastectomy: No Hx Musculoskeletal Surgery: No Hx Open Heart Surgery: Yes Hx Orthopedic Surgery: No Hx Splenectomy: No Hx Valve Replacement: No - ANESTHESIA Hx Anesthesia Reactions: No Hx Malignant Hyperthermia: No Meds Allergies/Adverse Reactions: Allergies Allergy/AdvReac Type Severity Reaction Status Date / Time No Known Allergies Allergy Verified 08/03/13 09:21 - Medications Medications: Current Medications Aspirin (Ecotrin) 81 mg PO DAILY [facility] Last Admin: 07/17/17 14:16 Dose: Not Given Glimepiride (Amaryl) 4 mg PO DAILY [facility] Piperacillin Sod/Tazobactam Sod (Zosyn 3.375 In Ns 100ml) 100 mls @ 200 mls/hr IVPB Q6 [facility] PRN Reason: Protocol Stop: 07/25/17 00:01 Last Admin: 07/18/17 06:16 Dose: 200 mls/hr Vancomycin HCl (Vancomycin 1gm) 1 gm in 250 mls @ 167 mls/hr IVPB Q12H [facility] PRN Reason: Protocol Last Admin: 07/18/17 07:11 Dose: 167 mls/hr Sodium Chloride (Sodium Chloride 0.45%) 1,000 mls @ 100 mls/hr IV .Q10H [facility] Last Admin: 07/17/17 23:11 Dose: 100 mls/hr Insulin Human Lispro (Humalog High) 0 units SC ACHS [facility] PRN Reason: Protocol Last Admin: 07/17/17 22:00 Dose: Not Given Levothyroxine Sodium (Synthroid) 100 mcg PO QAM [facility] Oxycodone/Acetaminophen (Percocet 5/325 Mg Tab) 0.5 tab PO Q6 [facility] Stop: 07/20/17 18:01 Last Admin: 07/18/17 06:19 Dose: Not Given Sitagliptin Phosphate (Januvia) 100 mg PO DAILY [facility] Last Admin: 07/17/17 14:17 Dose: Not Given Tamsulosin HCl (Flomax) 0.4 mg PO DAILY [facility] Last Admin: 07/17/17 14:17 Dose: Not Given Physical Exam - Constitutional Appears: Well, Non-toxic, No Acute Distress - Extremities Exam Additional comments: LE focused exam: Vasc: DP/PT pulses weakly palpable 1/4 b/l. Skin temperature warm to warm from proximal to distal. CFT < 3 seconds to all digits b/l. Mild edema noted surrounding amputation site. Neuro: Epicritic and protective sensation grossly intact b/l Derm: Partial first ray amputation site shows periwound erythema with malodor present. No purulent drainage noted or expressed. Medial wound dehiscence noted. No other open lesions, wounds, maceration, xerosis, abnormal pigmentation or abnormal growths noted MSK: POP noted to incision site - Neurological Exam Neurological exam: Alert, Oriented x3 - Psychiatric Exam Psychiatric exam: Normal Affect, Normal Mood Results - Vital Signs Recent Vital Signs: Last Vital Signs Temp 98.1 F 07/18/17 06:00 Pulse 88 07/18/17 06:00 Resp 22 07/18/17 06:00 BP 128/79 07/18/17 06:00 Pulse Ox 96 07/18/17 06:00 - Labs Result Diagrams: 07/17/17 12:35 07/17/17 12:35 Labs: Laboratory Results - last 24 hr 07/17/17 07/17/17 07/18/17 17:58 21:30 07:08 POC Glucose (mg/dL) 122 H 216 H 160 H Assessment & Plan - Assessment and Plan (Free Text) Assessment: 62 year old male 8 days s/p left foot partial first ray amputation seen on floors for infected wound site Plan: Patient seen and evaluated with Dr. Alva Charts, labs and vitals reviewed: WBC 10.3 on 07/17 One suture removed and bloody drainage expressed from surgical site Wound dressed with silvercel, gauze, ABD, kirlix PATIENT TO BE TAKEN TO O.R. TODAY FOR INCISION AND DRAINAGE OF SURGICAL SITE @ 4 :30 PATIENT TO BE NPO AFTER BREAKFAST Continue abx Awaiting cx results, new cx to be taken in OR ICA stenoses of 20-39% noted Podiatry to continue to follow while patient in house - Date & Time Date: 07/18/17 Time: 08:39 <Loc Alva - Last Filed: 07/18/17 17:47> Meds - Medications Medications: Current Medications Aspirin (Ecotrin) 81 mg PO DAILY [facility] Last Admin: 07/17/17 14:16 Dose: Not Given Glimepiride (Amaryl) 4 mg PO DAILY [facility] Last Admin: 07/18/17 09:51 Dose: Not Given Piperacillin Sod/Tazobactam Sod (Zosyn 3.375 In Ns 100ml) 100 mls @ 200 mls/hr IVPB Q6 [facility] PRN Reason: Protocol Stop: 07/25/17 00:01 Last Admin: 07/18/17 11:58 Dose: 200 mls/hr Vancomycin HCl (Vancomycin 1gm) 1 gm in 250 mls @ 167 mls/hr IVPB Q12H [facility] PRN Reason: Protocol Last Admin: 07/18/17 07:11 Dose: 167 mls/hr Sodium Chloride (Sodium Chloride 0.45%) 1,000 mls @ 100 mls/hr IV .Q10H [facility] Last Admin: 07/18/17 09:53 Dose: 100 mls/hr Insulin Human Lispro (Humalog High) 0 units SC ACHS [facility] PRN Reason: Protocol Last Admin: 07/18/17 11:21 Dose: Not Given Levothyroxine Sodium (Synthroid) 100 mcg PO QAM [facility] Last Admin: 07/18/17 09:51 Dose: 100 mcg Oxycodone/Acetaminophen (Percocet 5/325 Mg Tab) 0.5 tab PO Q6 [facility] Stop: 07/20/17 18:01 Last Admin: 07/18/17 11:21 Dose: Not Given Sitagliptin Phosphate (Januvia) 100 mg PO DAILY [facility] Last Admin: 07/18/17 09:51 Dose: Not Given Tamsulosin HCl (Flomax) 0.4 mg PO DAILY [facility] Last Admin: 07/18/17 09:51 Dose: 0.4 mg Results - Vital Signs Recent Vital Signs: Last Vital Signs Temp 99.0 F 07/18/17 16:23 Pulse 85 07/18/17 16:23 Resp 18 07/18/17 16:23 BP 169/79 H 07/18/17 16:23 Pulse Ox 98 07/18/17 16:23 - Labs Result Diagrams: 07/17/17 12:35 07/17/17 12:35 Labs: Laboratory Results - last 24 hr 07/17/17 07/17/17 07/18/17 17:58 21:30 06:00 ESR 128 H POC Glucose (mg/dL) 122 H 216 H C-React Prot High Sens 07/18/17 07/18/17 06:00 07:08 ESR POC Glucose (mg/dL) 160 H C-React Prot High Sens > 15.00 H Attending/Attestation - Attestation I have personally seen and examined this patient.: Yes I have fully participated in the care of the patient.: Yes I have reviewed all pertinent clinical information: Yes
[2017-07-18] MEDS: Insulin Lispro (HUMAlog) HIGH Coverage SC SCH ×4 (08:44→21:56)
[2017-07-18] MEDS: Levothyroxine 100 MCG TAB PO SCH (09:51)
[2017-07-18] MEDS: Sodium Chloride 0.45% 1,000 ML IV SCH ×2 (09:53→20:39)
--- NOTE | 2017-07-18 12:06 | CP.PCM.CON ---
History of Present Illness - History of Present Illness History of Present Illness: 62 year old male with PMH of DM, HTN, CAD S/P CABG, left foot infection S/P hallux amputation, S/P angioplasty for the left lower extremity was being seen at the wound care center yesterday and had an episode of dizziness. He was then brought [place] [facility]. He denies chest pain, no SOB, no headache, no cough or colds, no nausea or vomiting, no abdominal pain, no diarrhea, no dysuria. Infectious diseases consult is requested for the left foot infection. There is plan for surgery, debdridement and I and D for the left foot this admission. 07/17/17 12:15 CARAMEL CUTTER HAND from wound care center 62M w/PMH for L foot infection s/p hallux amputation, DM, HTN, CAD s/p CABG evaluated s/p CARAMEL CUTTER HAND in wound care center. Pt reports feeling generally weak, had amputation last Sunday, took Percocet at 10am today, arrived to his 10:45 wound care appointment without incident. Had wound cleaned. After transfer to a wheelchair for departure, pt reports he felt dizzy- room was spinning around him, reports facial color went garcia. Pt was brought to ED for further evaluation and possible admission for L foot infection. Denies N/V/F/C, SOB, CP , palpitations, SUN, vision changes, changes to bowel or bladder habits, numbness or tingling of extremities, other complaints. PMH: Left foot infection, DM, HTN, CAD PSH: CABG (4 vessel), L hallux amputation, angioplasty of LLE All: NKDA SH: Denies tobacco, ETOH or illicit drug use [facility] Review of Systems - Review of Systems All systems: reviewed and no additional remarkable complaints except (as per HPI ) Past Patient History - Infectious Disease Hx of Infectious Diseases: None - Tetanus Immunizations Tetanus Immunization: Unknown - Past Social History Smoking Status: Never Smoked - CARDIAC Hx Cardiac Disorders: Yes Hx Angina: Yes Hx Cardia Arrhythmia: No Hx Circulatory Problems: Yes Hx Congestive Heart Failure: No Hx Heart Murmur: No Hx Heart Transplant: No Hx Hypercholesterolemia: Yes Hx Hypertension: Yes Hx Internal Defibrillator: No Hx Mitral Valve Prolapse: No Hx Pacemaker: No Hx Peripheral Edema: No Hx Peripheral Vascular Disease: No - PULMONARY Hx Respiratory Disorders: No Hx Asthma: No Hx Bronchitis: No Hx Chronic Obstructive Pulmonary Disease (COPD): No Hx Emphysema: No Hx Pneumonia: No Hx Respiratory Aspiration: No Hx Respiratory Tract Infection: No Hx Sleep Apnea: No Hx Tuberculosis: No - NEUROLOGICAL Hx Neurological Disorder: No Hx Alzheimer's Disease: No HX Cerebrovascular Accident: No Hx Dementia: No Hx Dizziness: No Hx Meningitis: No Hx Migraine: No Hx Parkinson's Disease: No Hx Seizures: No Hx Transient Ischemic Attacks (TIA): No - HEENT Hx HEENT Problems: No Hx Blind: No Hx Cataracts: No Hx Deafness: No Hx Difficulty Chewing: No Hx Epistaxis: No Hx Glaucoma: No Hx Macular Degeneration: No - RENAL Hx Chronic Kidney Disease: No Hx Dialysis: No Hx Kidney Stones: No Hx Neurogenic Bladder: No Hx Pyelonephritis: No Hx Renal (Kidney) Cancer: No Hx Renal Failure: No - ENDOCRINE/METABOLIC Hx Endocrine Disorders: No Hx Adrenal Cancer: No Hx Diabetes Insipidus: No Hx Diabetes Mellitus Type 1: No Hx Diabetes Mellitus Type 2: No Hx Hyperthyroidism: No Hx Hypothyroidism: No Hx Systemic Lupus Erythematosus: No - HEMATOLOGICAL/ONCOLOGICAL Hx Blood Disorders: No Hx AIDS: No Hx Anemia: No Hx Cancer: No Hx Chemotherapy: No Hx Cirrhosis: No Hx Hemophilia: No Hx Hepatitis A: No Hx Hepatitis B: No Hx Hepatitis C: No Hx Human Immunodeficiency Virus (HIV): No Hx Metastesis: No Hx Shingles: No Hx Sickle Cell Disease: No Hx Unexplained Bleeding: No - INTEGUMENTARY Hx Dermatological Problems: No Hx Basil Cell: No Hx Eczema: No Hx Melanoma: No Hx Psoriasis: No Hx Squamous Cell: No - MUSCULOSKELETAL/RHEUMATOLOGICAL Hx Falls: No - GASTROINTESTINAL Hx Gastrointestinal Disorders: No Hx Colostomy: No Hx Crohn's Disease: No Hx Diverticulitis: No Hx Gall Bladder Disease: No Hx Gastroesophageal Reflux: No Hx Ileostomy: No Hx Liver Failure: No Hx Pancreatitis: No HX Swallowing Problems: No Hx Ulcer: No - GENITOURINARY/GYNECOLOGICAL Hx Genitourinary Disorders: No Hx Hematuria: No Hx Incontinence: No Hx Prostate Problems: Yes (turp) Hx Sexually Transmitted Disorders: No Hx Urinary Tract Infection: No - PSYCHIATRIC Hx Substance Use: No - SURGICAL HISTORY Hx Surgeries: Yes (yes) Hx Amputation: Yes (last week had 2nd toe amputated Lfoot) Hx Appendectomy: No Hx Cardiac Catheterization: No Hx Cholecystectomy: No Hx Coronary Stent: No Hx Gastric Bypass Surgery: No Hx Hysterectomy: No Hx Joint Replacement: No Hx Kidney Transplant: No Hx Liver Transplant: No Hx Mastectomy: No Hx Musculoskeletal Surgery: No Hx Open Heart Surgery: Yes Hx Orthopedic Surgery: No Hx Splenectomy: No Hx Valve Replacement: No - ANESTHESIA Hx Anesthesia Reactions: No Hx Malignant Hyperthermia: No Meds Allergies/Adverse Reactions: Allergies Allergy/AdvReac Type Severity Reaction Status Date / Time No Known Allergies Allergy Verified 08/03/13 09:21 - Medications Medications: Current Medications Aspirin (Ecotrin) 81 mg PO DAILY [facility] Last Admin: 07/17/17 14:16 Dose: Not Given Glimepiride (Amaryl) 4 mg PO DAILY [facility] Piperacillin Sod/Tazobactam Sod (Zosyn 3.375 In Ns 100ml) 100 mls @ 200 mls/hr IVPB Q6 [facility] PRN Reason: Protocol Stop: 07/25/17 00:01 Vancomycin HCl (Vancomycin 1gm) 1 gm in 250 mls @ 167 mls/hr IVPB Q12H [facility] PRN Reason: Protocol Insulin Human Lispro (Humalog High) 0 units SC ACHS [facility] PRN Reason: Protocol Last Admin: 07/17/17 18:03 Dose: Not Given Levothyroxine Sodium (Synthroid) 100 mcg PO QAM [facility] Oxycodone/Acetaminophen (Percocet 5/325 Mg Tab) 0.5 tab PO Q6 [facility] Stop: 07/20/17 18:01 Last Admin: 07/17/17 18:02 Dose: Not Given Sitagliptin Phosphate (Januvia) 100 mg PO DAILY [facility] Last Admin: 07/17/17 14:17 Dose: Not Given Tamsulosin HCl (Flomax) 0.4 mg PO DAILY [facility] Last Admin: 07/17/17 14:17 Dose: Not Given Physical Exam - Constitutional Appears: Non-toxic, No Acute Distress - Head Exam Head Exam: NORMAL INSPECTION - ENT Exam ENT Exam: Mucous Membranes Moist - Neck Exam Neck exam: Negative for: Lymphadenopathy, Meningismus - Respiratory Exam Respiratory Exam: Decreased Breath Sounds. absent: Rales - Cardiovascular Exam Cardiovascular Exam: +S1, +S2 - GI/Abdominal Exam GI & Abdominal Exam: Soft. absent: Tenderness - Extremities Exam Additional comments: left foot with dressings in place Results - Vital Signs Recent Vital Signs: Last Vital Signs Temp 98.4 F 07/17/17 18:00 Pulse 76 07/17/17 18:00 Resp 20 07/17/17 18:00 BP 151/70 H 07/17/17 18:00 Pulse Ox 100 07/17/17 14:35 - Labs Result Diagrams: 07/17/17 12:35 07/17/17 12:35 Labs: Laboratory Results - last 24 hr 07/17/17 17:58 POC Glucose (mg/dL) 122 H Assessment & Plan - Assessment and Plan (Free Text) Plan: Assessment Left foot infection with S/P hallux amputation, S/P angioplasty for the left lower extremity Syncope, etiology to be determined DM HTN CAD S/P CABG left foot infection S/P hallux amputation S/P angioplasty for the left lower extremity Plan Started patient on Vancomycin and Zosyn pending blood cx, wound cx, OR cx; for I and D and debridement this admission follow up syncope work up will monitor clinically
--- NOTE | 2017-07-18 12:47 | PN ---
SUBJECTIVE: The patient is 62 years old who was seen by Dr. Alva yesterday and was found to have wound infection that he recently had left hallux amputation done. The patient was taken to OR, had debridement and cleaning of his wound done by Dr. Alva this morning. PHYSICAL EXAMINATION VITAL SIGNS: He is afebrile, pulse 88, respirations 22, blood pressure 128/79. HEART: S1 and S2 audible. LUNGS: Bilateral fair airflow. No rhonchi or crackles. ABDOMEN: Soft, nontender. No rebound. No guarding. NEUROLOGIC: He is awake, alert, oriented. EXTREMITIES: Foot is wrapped in the dressing. LABORATORY DATA: ESR 128. Chemistry: Blood sugar is 160. He had carotid Doppler done that is unremarkable. ASSESSMENT: 1. Left first toe amputation, now coming in with wound infection at the surgical site. 2. Wound infection with temperature of 103.6 last night. 3. Insulin-dependent diabetes. 4. Hypertension. 5. Status post syncope. 6. Coronary artery disease. 7. Peripheral vascular disease. PLAN: The patient has I&D done. We will monitor his blood sugar. He is already on vancomycin and Zosyn. We will continue that. We will follow up OR cultures and we will start him on DVT prophylaxis with the SCDs. We will reevaluate the patient in the a.m. Letty Couch MD
[2017-07-18] MEDS ORDERED: Lidocaine 1% Inj (20ml) ONE (16:20)
[2017-07-18] MEDS ORDERED: Bupivacaine 0.5% Inj(30mL) ONE (16:20)
[2017-07-18] MEDS ORDERED: Propofol 10 mg/ml Inj (20 ML) ONE (16:37)
[2017-07-18] MEDS ORDERED: Midazolam 2 MG/2 ML VIAL ONE (16:37)
[2017-07-18] MEDS ORDERED: HYDROmorphone 0.5 mg/0.5 ml ISec IVP PRN (17:49)
--- NOTE | 2017-07-18 17:50 | PCM.SURG1 ---
Surgeon's Initial Post Op Note - Surgeon's Notes Surgeon: Dr. Loc Alva, DPM Knuckler: Dr. Austin Yeager, PGY1 Type of Anesthesia: IV Sedation, Local Anesthesia Administered By: Dr. Shafer Pre-Operative Diagnosis: Infected left foot s/p left hallux amputation Operative Findings: See dictation report. M- 3-0 vicryl, 1/4 inch plain packing. I- Preop: 20 cc 1:1 1% lidocaine plain, 0.5% marcaine plain Post-Operative Diagnosis: same Operation Performed: Incision and drainage of left foot infection with removal of all nonviable tissue and resection of left first metatarsal head Specimen/Specimens Removed: Soft tissue left foot and bony specimen from left first metatarsal head Estimated Blood Loss: EBL {In ML}: 20 Blood Products Given: N/A Drains Used: No Drains Post-Op Condition: Good Date of Surgery/Procedure: 07/18/17 Time of Surgery/Procedure: 17:51
[2017-07-18] MEDS ORDERED: Lactated Ringer's 1,000 ML IV SCH (18:00)
[2017-07-19] MEDS: Oxycodone/Acetaminophen 5/325 mg Tab PO SCH ×5 (00:29→23:20)
[2017-07-19] MEDS: Piperacillin/Tazobact 3.375 gm 100 ML IVPB SCH ×5 (00:33→23:20)
[2017-07-19 05:52] LABS: BASO # 0.02 K/mm3 (0.0-2.0); BASO % 0.2 % (0.0-3.0); EOS # 0.1 (0.0-0.7); EOS % 0.6 % (1.5-5.0); GRAN # 6.61 (1.4-6.5); GRAN % 74.2 % (50.0-68.0); HEMATOCRIT 26.9 % (42.0-52.0); LYMPH # 1.2 (1.2-3.4); LYMPH % 13.5 % (22.0-35.0); MEAN CELL VOLUME 80.5 fl (80.0-105.0); MEAN CORPUSCULAR HEMOGLOBIN 25.7 pg (25.0-35.0); MEAN PLATELET VOLUME 10.1 fl (7.0-11.0); MONO % 11.5 % (1.0-6.0); RED CELL DISTRIBUTION WIDTH 14.2 % (11.5-14.5); WHITE BLOOD COUNT 8.9 10^3/ul (4.5-11.0)
[2017-07-19 06:15] LABS: ALB/GLOB RATIO 1.1 (1.1-1.8); ALKALINE PHOSPHATASE 85 U/L (38-126); ALT/SGPT 35 U/L (7-56); AST/SGOT 35 U/L (17-59); BILIRUBIN,TOTAL 0.8 mg/dL (0.2-1.3); BLOOD UREA NITROGEN 13 mg/dL (7-21); CALCIUM 8.7 mg/dL (8.4-10.5); CARBON DIOXIDE 25 mmol/L (21-33); CHLORIDE 103 mmol/L (98-107); GFR AFRICAN-AMERICAN > 60; GLUCOSE,RANDOM 161 mg/dL (70-110); POTASSIUM 4.5 mmol/L (3.6-5.0); SODIUM 139 mmol/L (132-148)
[2017-07-19] MEDS: Insulin Lispro (HUMAlog) HIGH Coverage SC SCH ×4 (08:03→21:30)
[2017-07-19] MEDS: Vancomycin 1gm in NS 250ml 1 GM/250 ML BAG IVPB SCH ×2 (08:04→19:40)
--- NOTE | 2017-07-19 08:08 | OP ---
PROCEDURE DATE: 07/18/2017 INDICATIONS: A 62-year-old diabetic male, who had undergone left first hallux amputation secondary to osteomyelitis on 07/10/2012, who was brought back into the operating today for an incision and drainage and metatarsal head resection of an infected surgical site. The patient was seen today postoperatively at bedside with no signs of dehiscence but with drainage from a new ulceration. No edema. No erythema. No signs of infection and presented approximately 5 days later with fever, chills and nausea. He was diaphoretic when presenting at the wound center yesterday and he was promptly admitted for syncope and wound infection. LABORATORY FINDINGS UPON ADMISSION: White cell count 10.3, his hemoglobin was 9.8, his hematocrit was 30.4, platelet count was 254 and his ESR was 128. Upon examination in the wound care center at yesterdays f/u post op visit, it was noted that he had an abscess formation at the surgical site, which presented with edema, erythema and purulent discharge. He became light headed and faint at this time. After the patient was admitted and became stabilized and feeling much better, he was scheduled for incision and drainage today with flush out and possible metatarsal head resection. PROCEDURE IN DETAIL: The patient was brought into the operating room in the supine position and transferred from his hospital bed onto the operating room table. Following the period of the IV sedation, local ankle block was given and a local infiltration of the first metatarsal phalangeal joint was given, consisting of a total of 16 mL of 1:1 ratio of 1% lidocaine plain and 0.5% Marcaine plain. Foot was then scrubbed, prepped and draped in the usual aseptic manner. Attention was directed at the operative site where the left hallux was amputated approximately 8 days ago. The incision site was intact with no dehiscence, however, there was an ulceration that was emanating purulence at the lateral site of the incision. All chan and sutures were removed from the incision site and the incision was opened. Upon opening with the #15 blade, there was noted to be purulent discharge. Tissue was inspected and there was found to be necrotic and gangrenous tissue dispersed throughout with foul smelling purulence. Using a 15 blade and iris scissors, all the necrotic and gangrenous tissue was excised. The metatarsal head was noted to be soft and there was gangrenous and necrotic tissue underlying the metatarsal head which involved the sesamoid apparatus. At this time, the surgical saw was brought into the operative rivera and the metatarsal head was resected and the sesamoid apparatus was removed in total. At this point, the flexor tendon was retracted and excised as well as the extensor tendon too. There was noted to be excellent bleeding and upon inspection, virtually all of the necrotic and gangrenous tissue was removed. Using a pulsed lavage, the area was flushed with a 1000 mL of sterile saline irrigant. It was noted the metatarsal bone and surrounding soft tissue was bleeding profusely and all of the tissue was granular. At this point, the soft tissue planes were opened up in the first interspace using a blunt scissor and there was no purulence n oted- just red blood. Wound was then flushed again with sterile saline and half inch sterile iodoform packing was applied into the wound and into the first interspace. The wound was dressed with sterile Adaptic, sterile 4 x 4 abdominal pads, Kerlix and Coban. The patient tolerated the procedure well and was transferred back into the recovery room with Anesthesiologist and Surgeon present. The patient's was spoken to after the surgery and she was told that the patient may need to go back into the operating room if there is found to be any purulence. During the operation, piece of proximal resected bone was submitted for specimen and a culture was taken for sensitivities. X-rays were ordered as well and order for Dilaudid 0.5 mg. The patient will be seen and followed in the a.m. Loc Alva DPM JOANNA
[2017-07-19] MEDS: Sodium Chloride 0.45% 1,000 ML IV SCH ×2 (08:15→10:11)
--- NOTE | 2017-07-19 08:24 | RAD ---
PROCEDURE: Left Foot Radiographs. HISTORY: s/p left foot surgery COMPARISON: None. FINDINGS: BONES: There has been recent amputation at the level of the neck of the 1st metatarsal. There is a small amount of air in the adjacent soft tissues JOINTS: Normal. SOFT TISSUES: Normal. OTHER FINDINGS: None. IMPRESSION: There has been recent amputation at the level of the neck of the 1st metatarsal. There is a small amount of air in the adjacent soft tissues
[2017-07-19] MEDS: Levothyroxine 100 MCG TAB PO SCH (09:23)
--- NOTE | 2017-07-19 10:04 | PN ---
SUBJECTIVE: A 62-year-old diabetic male, seen at bedside status post reentry into the operating room 1 day for incision and drainage of postoperative infection with partial resection of the first metatarsal on the left foot. The patient states he is feeling much better. He has been afebrile. He denies any cough or abdominal pain. No vomiting. No diarrhea. No dysuria. No shortness of breath. OBJECTIVE: VITAL SIGNS: Reveal temperature of 98.8, pulse rate of 96, blood pressure of 140/89 and respiratory rate of 18. Weakly palpable pedal pulses noted bilaterally. Operative site on the left foot presents with a now full-thickness wound that remains primarily granular. There is noted to be serous drainage. There is no malodor. There is no purulence. However, the entire medial forefoot is edematous and erythematous and painful to the touch. Area was flushed with normal sterile saline and using sterile gloves, sterile scissors and a sterile suture kit, tissue planes were probed gently to ascertain if there were any pockets of purulence present and there was found to be none. The wound was then flushed again with copious amounts of normal sterile saline. LABORATORY FINDINGS: Reveal white count of 8.9, hemoglobin of 8.6, hematocrit of 26.9 and platelet count of 268. Microbiology report from the OR is pending. ASSESSMENT: Status post day #1 first left metatarsal head resection secondary to postoperative infection on the left foot. PLAN: The patient's wound was examined and gently probed with sterile gloves and sterile suture kit for pockets of purulence and there was found to be none. The entire wound remains granular. There is no malodor. There is no purulence to suggest any remaining pockets of purulence. Wound was packed with iodoform packing and a dry sterile dressing was applied. The patient was told that he can ambulate as tolerated, which would encourage release of any purulent pockets in the deep recesses of his foot if there are any. We will continue with the Zosyn and the vancomycin as per infectious disease. We are awaiting culture results from the operating room which will dictate treatment going forward. Infectious disease note by Dr. Wayne was read and appreciated. Loc Alva DPM
--- NOTE | 2017-07-19 13:16 | PN ---
DATE: SUBJECTIVE: The patient is a 62-year-old, seen and examined, lying in bed, seems to be doing well, and had low-grade fever. Discussed with Dr. Alva, plan to take him to OR again tomorrow. PHYSICAL EXAMINATION: GENERAL: Today; he is awake, alert, oriented, and communicative. VITAL SIGNS: His temperature is 100.4, pulse 96, respirations 18, and blood pressure 140/89. LUNGS: Bilateral good airflow. No rhonchi or crackle. HEART: S1 and S2 audible. ABDOMEN: Soft and nontender. No rebound. No guarding. NEUROLOGIC: He is awake, alert, oriented, and communicative. LABORATORY DATA: WBC is 8.9, hemoglobin 8.6, hematocrit 26.9, and platelet 268. Chemistry; sodium 139, potassium 4.5, chloride 103, CO2 of 95, BUN 13, creatinine 0.9, and blood sugar of 161. C-reactive protein is 15. His blood culture and urine cultures are negative. ASSESSMENT: 1. Left first metatarsal head resection secondary to postoperative infection. 2. Leukocytosis and fever. 3. Chronic anemia. 4. Insulin-dependent diabetes. 5. Peripheral vascular disease. 6. History of hypertension. 7. Coronary artery disease. PLAN: We will discontinue telemetry. There is no cardiac event. The patient is eating well. We will discontinue his IV fluid. We will continue to monitor his blood sugar. Analgesic as needed. He is currently on vancomycin and Zosyn as recommended by ID. I think he can have nonweightbearing therapy. We will revaluate the patient in a.m. or at least he should be out of bed . Letty Couch MD
--- NOTE | 2017-07-19 13:52 | CP.PCM.PN ---
Subjective - Date & Time of Evaluation Date of Evaluation: 07/19/17 Time of Evaluation: 08:30 - Subjective Subjective: Comfortable in bed, had surgery done yesterday, no fevers overnight. Objective - Vital Signs/Intake and Output Vital Signs (last 24 hours): Temp Pulse Resp BP Pulse Ox 98.2 F 85 16 142/77 98 07/19/17 12:23 07/19/17 12:23 07/19/17 12:23 07/19/17 12:23 07/19/17 06:05 Intake and Output: 07/19/17 07/19/17 06:59 18:59 Intake Total 2360 Output Total 600 Balance 1760 - Medications Medications: Current Medications Acetaminophen (Tylenol 325mg Tab) 650 mg PO Q6H [facility]N PRN Reason: Fever >100.4 F Last Admin: 07/19/17 05:38 Dose: 650 mg Aspirin (Ecotrin) 81 mg PO DAILY [facility] Last Admin: 07/17/17 14:16 Dose: Not Given Glimepiride (Amaryl) 4 mg PO DAILY [facility] Last Admin: 07/19/17 09:23 Dose: 4 mg Piperacillin Sod/Tazobactam Sod (Zosyn 3.375 In Ns 100ml) 100 mls @ 200 mls/hr IVPB Q6 [facility] PRN Reason: Protocol Stop: 07/25/17 00:01 Last Admin: 07/19/17 12:17 Dose: 200 mls/hr Vancomycin HCl (Vancomycin 1gm) 1 gm in 250 mls @ 167 mls/hr IVPB Q12H [facility] PRN Reason: Protocol Last Admin: 07/19/17 08:04 Dose: 167 mls/hr Insulin Human Lispro (Humalog High) 0 units SC ACHS [facility] PRN Reason: Protocol Last Admin: 07/19/17 12:16 Dose: 4 units Levothyroxine Sodium (Synthroid) 100 mcg PO QAM [facility] Last Admin: 07/19/17 09:23 Dose: 100 mcg Oxycodone/Acetaminophen (Percocet 5/325 Mg Tab) 0.5 tab PO Q6 [facility] Stop: 07/20/17 18:01 Last Admin: 07/19/17 12:12 Dose: Not Given Sitagliptin Phosphate (Januvia) 100 mg PO DAILY [facility] Last Admin: 07/19/17 09:23 Dose: 100 mg Tamsulosin HCl (Flomax) 0.4 mg PO DAILY [facility] Last Admin: 07/19/17 09:23 Dose: 0.4 mg - Labs Labs: 07/19/17 05:20 07/19/17 05:20 - Constitutional Appears: Non-toxic, No Acute Distress - Head Exam Head Exam: NORMAL INSPECTION - ENT Exam ENT Exam: Mucous Membranes Moist - Neck Exam Neck Exam: absent: Lymphadenopathy, Meningismus - Respiratory Exam Respiratory Exam: Decreased Breath Sounds - Cardiovascular Exam Cardiovascular Exam: +S1, +S2 - GI/Abdominal Exam GI & Abdominal Exam: Soft. absent: Tenderness - Extremities Exam Additional comments: left foot with dressings in place Assessment and Plan - Assessment and Plan (Free Text) Plan: Assessment Left foot infection (skin and soft tissue infection and osteomyelitis) with S/P hallux amputation, S/P angioplasty for the left lower extremity; S/P I and D, resection of of 1st metatarsal head POD #1 Syncope, etiology to be determined DM HTN CAD S/P CABG left foot infection S/P hallux amputation S/P angioplasty for the left lower extremity Plan continue Vancomycin and Zosyn pending OR cx and pathology follow up syncope work up will continue to monitor clinically
[2017-07-19] MEDS ORDERED: Alum-Mag Hydrox-Simethicone Susp (30 mL) PO PRN (20:02)
[2017-07-19] MEDS ORDERED: Pantoprazole 40 mg EC Tab PO ONE (20:20)
[2017-07-20] MEDS: Pantoprazole 40 mg EC Tab PO SCH (05:23)
[2017-07-20] MEDS: Piperacillin/Tazobact 3.375 gm 100 ML IVPB SCH (05:23)
[2017-07-20] MEDS: Oxycodone/Acetaminophen 5/325 mg Tab PO SCH (05:53)
[2017-07-20] MEDS ORDERED: Pantoprazole 40 mg EC Tab PO SCH (06:00)
--- NOTE | 2017-07-20 10:19 | PN ---
DATE: 07/20/2017 SUBJECTIVE: The patient is in bed, in no acute distress, nontoxic. OBJECTIVE: VITAL SIGNS: On exam, temperature is 99, blood pressure is 140/70, respiratory rate of 18 and heart rate of 86. EXAMINATION OF HEENT: Unremarkable. NECK: Supple. LUNGS: Have decreased breath sounds. HEART EXAM: Normal S1 and S2. ABDOMINAL EXAMINATION: Soft, nontender. LABORATORY EXAMINATION: Reveals a white count of 8.9, hemoglobin of 8, platelets of 268. Chemistries reveal a BUN of 13 and creatinine of 0.9. C-reactive protein is greater than 15. Microbiology reveals the blood cultures negative. Bone cultures are pending and vancomycin and Zosyn. ASSESSMENT AND PLAN: A 62-year-old male with left foot infection, skin and skin soft tissue infection, osteomyelitis, status post hallux amputation, status post angioplasty, left lower extremity status post incision and drainage, resection of first metatarsal head, postop day #2 with syncope, etiology needs to be determined; hypertension; diabetes; coronary artery disease, history of coronary bypass graft; on vancomycin and Zosyn. We will check on the cultures and we will follow with you. Awaiting for pathology and cultures. Dallas Li MD
[2017-07-20] MEDS ORDERED: Bupivacaine 0.5% Inj(30mL) ONE (10:26)
[2017-07-20] MEDS ORDERED: Lidocaine 1% Inj (20ml) ONE (10:26)
[2017-07-20] MEDS ORDERED: Midazolam 2 MG/2 ML VIAL ONE (11:11)
[2017-07-20] MEDS ORDERED: Propofol 10 mg/ml Inj (20 ML) ONE (11:15)
[2017-07-20] MEDS ORDERED: Bupivacaine 0.5% Inj(30mL) IJ ONE (11:25)
[2017-07-20] MEDS ORDERED: Lidocaine 1% Inj (20ml) IJ ONE (11:25)
[2017-07-20] MEDS ORDERED: HYDROmorphone 0.5 mg/0.5 ml ISec IVP PRN ×2 (12:14)
--- NOTE | 2017-07-20 12:20 | PCM.SURG1 ---
Surgeon's Initial Post Op Note - Surgeon's Notes Surgeon: Dr. Loc Alva, DPM Engineer Internship: Dr. Austin Yeager, PGY1 Type of Anesthesia: IV Sedation, Local Anesthesia Administered By: Dr. Hebert Pre-Operative Diagnosis: Infected left foot post operative site Operative Findings: See dictation report Post-Operative Diagnosis: Same Operation Performed: Incision and drainage of open left foot post operative site with incision of SELINA drain and closure Specimen/Specimens Removed: M- SELINA drain, 3-0 vicryl, 3-0 nylon. I- Pre-op: 14 cc 1:1 1% lidocaine plain, 0.5% marcaine plain Estimated Blood Loss: EBL {In ML}: 5 Blood Products Given: N/A Drains Used: Keshav Gregory Post-Op Condition: Good Date of Surgery/Procedure: 07/20/17 Time of Surgery/Procedure: 12:21
--- NOTE | 2017-07-20 14:09 | PN ---
DATE: SUBJECTIVE: The patient is a 62-year-old, seen and examined, doing well, status post I and D in the OR. PHYSICAL EXAMINATION: VITAL SIGNS: He is afebrile, pulse 85, respirations 20, and blood pressure 160/79. LUNGS: Bilateral fair airflow. No rhonchi or crackle. HEART: S1 and S2 audible. ABDOMEN: Soft and nontender. No rebound. No guarding. NEUROLOGICAL: He is awake, alert, oriented, and communicative. Has left foot in the dressing. LABORATORY DATA: Blood sugar is 85. ASSESSMENT: 1. Left big toe infected wound, status post irrigation and debridement. 2. Hypertension. 3. Peripheral vascular disease. 4. Insulin-dependent diabetes. 5. Chronic anemia. 6. Coronary artery disease. PLAN: The patient is currently on antibiotics as recommended by ID. He is receiving vancomycin 1 g q.12 hours and he is on Zosyn. We will give him analgesic as needed. Physical therapy as per podiatry's recommendation. Letty Couch MD
[2017-07-20] MEDS: Insulin Lispro (HUMAlog) HIGH Coverage SC SCH ×3 (17:11→22:13)
[2017-07-20 17:37] VITALS: RESP 20
[2017-07-20] MEDS: Vancomycin 1gm in NS 250ml 1 GM/250 ML BAG IVPB SCH (20:00)
[2017-07-21] MEDS: Piperacillin/Tazobact 3.375 gm 100 ML IVPB SCH ×5 (00:10→12:27)
[2017-07-21] MEDS: Pantoprazole 40 mg EC Tab PO SCH (05:23)
[2017-07-21] MEDS: Vancomycin 1gm in NS 250ml 1 GM/250 ML BAG IVPB SCH ×3 (05:25→19:36)
[2017-07-21] MEDS: Insulin Lispro (HUMAlog) HIGH Coverage SC SCH ×3 (08:41→17:14)
[2017-07-21] MEDS: Levothyroxine 100 MCG TAB PO SCH (09:34)
[2017-07-21 10:11] LABS: BASO # 0.02 K/mm3 (0.0-2.0); BASO % 0.3 % (0.0-3.0); EOS # 0.2 (0.0-0.7); EOS % 3.4 % (1.5-5.0); GRAN # 4.87 (1.4-6.5); GRAN % 69.8 % (50.0-68.0); HEMATOCRIT 27.6 % (42.0-52.0); LYMPH # 1.3 (1.2-3.4); LYMPH % 17.9 % (22.0-35.0); MEAN CELL VOLUME 81.2 fl (80.0-105.0); MEAN CORPUSCULAR HEMOGLOBIN 26.2 pg (25.0-35.0); MEAN CORPUSCULAR HGB CONC 32.2 g/dl (31.0-37.0); MEAN PLATELET VOLUME 9.7 fl (7.0-11.0); MONO # 0.6 (0.1-0.6); MONO % 8.6 % (1.0-6.0); RED CELL DISTRIBUTION WIDTH 14.4 % (11.5-14.5)
--- NOTE | 2017-07-21 10:53 | PN ---
SUBJECTIVE: A 62-year-old diabetic male, seen at bedside, status post 2 days revisional surgery on infected left foot following left hallux amputation. The patient is resting comfortably, offers no complaints, is afebrile and has no pain. The patient's most recent laboratory findings reveal a white count of 8.9, hemoglobin of 8.6, hematocrit 26.9 and platelet count of . Most recent microbiology report taken in the operating room reveals no organisms and no polymorphonuclear white blood cells seen. OBJECTIVE VITAL SIGNS: Revealed temperature of 98.6, pulse rate of 72, blood pressure of 137/70, respiratory rate of 20. EXTREMITIES: Weakly palpable pedal pulses noted bilaterally. Surgical site on the left foot presents with sutures intact. No dehiscence. Incision site is well coapted. There is no drainage. The Keshav-Gregory drain that is present shows minimal serous fluid. The area is not edematous or erythematous. He has no pain. ASSESSMENT: Status post 2 days revisional left foot surgery secondary to postoperative infection. PLAN: The patient's foot was inspected, there was found to be no signs of dehiscence or drainage. Keshav-Gregory drain has collected fluid, but it is minimal at this point. We will remove the Keshav-Gregory drain tomorrow if there is no further drainage. We will continue with IV antibiotics as per infectious disease. We will order a new complete blood count with differentials and consider 1 unit of blood given the patient's hemoglobin, hematocrit and red blood cell level. The patient will be seen and followed daily. Loc Alva DPM
--- NOTE | 2017-07-21 12:31 | PN ---
DATE: 07/21/2017 SUBJECTIVE: The patient is in bed in no acute distress, nontoxic. PHYSICAL EXAMINATION: VITAL SIGNS: Temperature is 98, blood pressure is 130/70, respiratory of 20, heart rate of 72. HEENT: Unremarkable. NECK: Supple. LUNGS: Decreased breath sounds. HEART: Normal S1, S2. ABDOMEN: Soft and nontender. LABORATORY EXAMINATION: Reveals a white count of 8.9, hemoglobin of 8 and platelets of 268. Chemistries reveals a BUN of 13, creatinine of 0.9. Blood cultures are negative. Bone cultures are negative and tissue cultures no growth. Foot cultures no growth at 24 hours. Review of orders, the patient is on vancomycin and Zosyn. ASSESSMENT AND PLAN: This is a 62-year-old male with a left foot infection and skin and skin soft tissue infection, osteomyelitis, status post hallux amputations, left lower extremity status post incision and drainage, resection of first metatarsal head postop day number 3 with syncope, etiology need to be determined and hypertension, diabetic, coronary artery disease and history of coronary bypass graft on vancomycin and Zosyn. Awaiting for final culture results and awaiting for pathology report. Dallas Li MD
[2017-07-21] MEDS: Enoxaparin 40 mg Syringe SC SCH (17:19)
--- NOTE | 2017-07-21 20:15 | PN ---
SUBJECTIVE: The patient is 62 years old, seen and examined, lying in bed, seems to be comfortable. No nausea or vomiting. No diarrhea. Pain is under control. PHYSICAL EXAMINATION VITAL SIGNS: He is afebrile, pulse 71, respirations 20, blood pressure 148/80. LUNGS: Bilateral fair airflow. No rhonchi or crackle. HEART: S1 and S2 audible. ABDOMEN: Soft. Nontender. No rebound. No guarding. NEUROLOGICAL: He is awake, alert, oriented, communicative. EXTREMITIES: His left foot is in the dressing that is drained. SELINA drain coming from the wound has almost 5 to 10 mL blood-tinged fluid. LABORATORY DATA: WBC 7.0, hemoglobin 8.9, hematocrit 27.6, platelet of 312. Chemistry, blood sugar is 175. ASSESSMENT AND PLAN: 1. Left foot status post big toe amputation, status post wound infection and incision and drainage. 2. Status post osteomyelitis. 3. Peripheral vascular disease. 4. Hypertension. 5. Insulin-dependent diabetes. 6. Coronary artery disease, status post open heart surgery. PLAN: Currently, the patient is on Zosyn and vancomycin. His blood sugar is being monitored, seems to be decent range. I will put him on DVT prophylaxis. We will discuss with ID that if he need antibiotic depending on OR cultures, then he has to be transferred to TCU to complete his course of antibiotic or if it can be and physical therapy orders as per Podiatry. He is advised to have a nonweightbearing therapy. Letty Couch MD
[2017-07-22] MEDS: Piperacillin/Tazobact 3.375 gm 100 ML IVPB SCH ×5 (00:35→17:27)
[2017-07-22] MEDS: Pantoprazole 40 mg EC Tab PO SCH (05:34)
[2017-07-22] MEDS: Vancomycin 1gm in NS 250ml 1 GM/250 ML BAG IVPB SCH ×3 (08:56→19:08)
[2017-07-22] MEDS: Insulin Lispro (HUMAlog) HIGH Coverage SC SCH ×3 (09:00→17:22)
[2017-07-22] MEDS: Enoxaparin 40 mg Syringe SC SCH (10:27)
[2017-07-22] MEDS: Levothyroxine 100 MCG TAB PO SCH (10:27)
--- NOTE | 2017-07-22 11:07 | CP.PCM.PN ---
<Heidi Hagan - Last Filed: 07/22/17 11:03> Subjective - Date & Time of Evaluation Date of Evaluation: 07/22/17 Time of Evaluation: 11:04 - Subjective Subjective: 62 y/o male seen at bedside this morning 3 days s/p revisional surgery of infected left foot following hallux amputation. Patient is resting comfortably in bed, in NAD and AAOx3. Patient's dressing remains clean,dry,intact, drain is intact. Patient denies any acute complaints overnight. He denies any pain to the surgical site. Patient denies n/v/d/c/sob. Objective - Vital Signs/Intake and Output Vital Signs (last 24 hours): Temp Pulse Resp BP Pulse Ox 98.4 F 74 20 155/80 H 100 07/22/17 08:20 07/22/17 08:20 07/22/17 08:20 07/22/17 08:20 07/22/17 08:20 Intake and Output: 07/22/17 07/22/17 06:59 18:59 Intake Total 480 Output Total 250 620 Balance -250 -140 - Medications Medications: Current Medications Acetaminophen (Tylenol 325mg Tab) 650 mg PO Q6H PRN PRN Reason: Fever >100.4 F Last Admin: 07/19/17 18:08 Dose: 650 mg Al Hydrox/Mg Hydrox/Simethicone (Maalox Plus 30 Ml) 30 ml PO DAILY PRN PRN Reason: Indigestion / Heartburn Last Admin: 07/19/17 20:49 Dose: 30 ml Aspirin (Ecotrin) 81 mg PO DAILY ON LICENSE OF [facility] Last Admin: 07/22/17 10:27 Dose: 81 mg Enoxaparin Sodium (Lovenox) 40 mg SC DAILY MADHU PRN Reason: Protocol Last Admin: 07/22/17 10:27 Dose: 40 mg Glimepiride (Amaryl) 4 mg PO DAILY ON LICENSE OF [facility] Last Admin: 07/22/17 10:26 Dose: 4 mg Piperacillin Sod/Tazobactam Sod (Zosyn 3.375 In Ns 100ml) 100 mls @ 200 mls/hr IVPB Q6 MADHU PRN Reason: Protocol Stop: 07/25/17 00:01 Last Admin: 07/22/17 05:34 Dose: 200 mls/hr Vancomycin HCl (Vancomycin 1gm) 1 gm in 250 mls @ 167 mls/hr IVPB Q12H MDAHU PRN Reason: Protocol Last Admin: 07/22/17 08:57 Dose: 167 mls/hr Insulin Human Lispro (Humalog High) 0 units SC ACHS MADHU PRN Reason: Protocol Last Admin: 07/22/17 09:00 Dose: 2 units Levothyroxine Sodium (Synthroid) 100 mcg PO QAM ON LICENSE OF [facility] Last Admin: 07/22/17 10:27 Dose: 100 mcg Ondansetron HCl (Zofran Inj) 4 mg IVP ONCE PRN PRN Reason: Nausea/Vomiting Pantoprazole Sodium (Protonix Ec Tab) 40 mg PO 0600 ON LICENSE OF [facility] Last Admin: 07/22/17 05:34 Dose: 40 mg Sitagliptin Phosphate (Januvia) 100 mg PO DAILY ON LICENSE OF [facility] Last Admin: 07/22/17 10:26 Dose: 100 mg Tamsulosin HCl (Flomax) 0.4 mg PO DAILY ON LICENSE OF [facility] Last Admin: 07/22/17 10:26 Dose: 0.4 mg - Labs Labs: 07/21/17 10:00 07/19/17 05:20 - Constitutional Appears: Well, Non-toxic, No Acute Distress - Extremities Exam Additional comments: Vasc: weakly palpable DP and PT pulses b/l, TG wnl, CFT < 3 sec to all digits neuro: grossly diminished derm: surgical incision site well coapted, sutures intact, no dehiscence, no purulence, no active drainage, drain pulled from dorsal incision site, minimal serosanguinous drainage noted on bandage, no fluctuance noted ortho: no pain on palpation along surgical site - Neurological Exam Neurological Exam: Alert, Awake, Oriented x3 - Psychiatric Exam Psychiatric exam: Normal Affect, Normal Mood Assessment and Plan - Assessment and Plan (Free Text) Assessment: 62 y/o male seen at bedside 3 days s/p left foot revisional surgery of hallux amputation secondary to postoperative infection Plan: patient evaluated and chart reviewed discussed in detail with attending Dr. Alva labs and vitals reviewed; WBC 7.0 continue IV abx as per ID SELINA drain pulled from left foot, applied steri strips, betadine, adaptic, DSD, KAREN patient to continue nonweightbearing to left foot podiatry will continue to monitor while patient remains in house <Loc Alva - Last Filed: 07/23/17 08:32> Objective - Vital Signs/Intake and Output Vital Signs (last 24 hours): Temp Pulse Resp BP Pulse Ox 98.8 F 80 20 130/71 100 07/22/17 17:38 07/22/17 17:38 07/22/17 17:38 07/22/17 17:38 07/22/17 17:38 Intake and Output: 07/23/17 07/23/17 06:59 18:59 Intake Total 1390 Output Total 250 750 Balance -250 640 - Medications Medications: Current Medications Acetaminophen (Tylenol 325mg Tab) 650 mg PO Q6H PRN PRN Reason: Fever >100.4 F Last Admin: 07/19/17 18:08 Dose: 650 mg Al Hydrox/Mg Hydrox/Simethicone (Maalox Plus 30 Ml) 30 ml PO DAILY PRN PRN Reason: Indigestion / Heartburn Last Admin: 07/19/17 20:49 Dose: 30 ml Aspirin (Ecotrin) 81 mg PO DAILY ON LICENSE OF [facility] Last Admin: 07/22/17 10:27 Dose: 81 mg Enoxaparin Sodium (Lovenox) 40 mg SC DAILY MADHU PRN Reason: Protocol Last Admin: 07/22/17 10:27 Dose: 40 mg Glimepiride (Amaryl) 4 mg PO DAILY ON LICENSE OF [facility] Last Admin: 07/22/17 10:26 Dose: 4 mg Piperacillin Sod/Tazobactam Sod (Zosyn 3.375 In Ns 100ml) 100 mls @ 200 mls/hr IVPB Q6 MADHU PRN Reason: Protocol Stop: 07/25/17 00:01 Last Admin: 07/23/17 00:03 Dose: 200 mls/hr Vancomycin HCl (Vancomycin 1gm) 1 gm in 250 mls @ 167 mls/hr IVPB Q12H MADHU PRN Reason: Protocol Last Admin: 07/23/17 07:27 Dose: 167 mls/hr Insulin Human Lispro (Humalog High) 0 units SC ACHS MADHU PRN Reason: Protocol Last Admin: 07/23/17 00:01 Dose: Not Given Levothyroxine Sodium (Synthroid) 100 mcg PO QAM ON LICENSE OF [facility] Last Admin: 07/22/17 10:27 Dose: 100 mcg Ondansetron HCl (Zofran Inj) 4 mg IVP ONCE PRN PRN Reason: Nausea/Vomiting Pantoprazole Sodium (Protonix Ec Tab) 40 mg PO 0600 ON LICENSE OF [facility] Last Admin: 07/22/17 05:34 Dose: 40 mg Sitagliptin Phosphate (Januvia) 100 mg PO DAILY ON LICENSE OF [facility] Last Admin: 07/22/17 10:26 Dose: 100 mg Tamsulosin HCl (Flomax) 0.4 mg PO DAILY ON LICENSE OF [facility] Last Admin: 07/22/17 10:26 Dose: 0.4 mg - Labs Labs: 07/21/17 10:00 07/19/17 05:20 Attending/Attestation - Attestation I have personally seen and examined this patient.: Yes I have fully participated in the care of the patient.: Yes I have reviewed all pertinent clinical information, including history, physical exam and plan: Yes
--- NOTE | 2017-07-22 12:21 | PN ---
DATE: 07/22/2017 SUBJECTIVE: The patient is in bed, in no acute distress. OBJECTIVE: VITAL SIGNS: On exam, temperature is 98, blood pressure is 150/80, respiratory of 20 and heart rate of 71. EXAMINATION OF HEENT: Unremarkable. NECK: Supple. LUNGS: Have decreased blood sounds. HEART EXAM: Normal S1 and S2. ABDOMINAL EXAMINATION: Soft and nontender. LABORATORY EXAMINATION: Reveals a white count is 7, hemoglobin of 8 and platelets of 312. Creatinine is 0.9. Urinalysis is noted. Microbiology reveals the left foot cultures no growth. Blood cultures are no growth. Wound cultures, no growth. Last creatinine was 0.9 on the . REVIEW OF ORDERS: Reveals the patient to be on vancomycin and Zosyn. ASSESSMENT AND PLAN: A 62-year-old male with left foot infection and skin and skin soft tissue infection, osteomyelitis, status post hallux amputation of left lower extremity, status post incision and drainage and resection of first metatarsal head, postop day #4 with syncope, etiology to be determined in a patient with hypertension, diabetes, coronary artery disease, history of coronary artery bypass graft, currently on vancomycin and Zosyn. We will check on the final culture results and pathology report. Review of the medications reveals the patient to be receiving vancomycin, 07:15 in the morning. I will order a vanco trough level for tomorrow at 06:15 and an hour before the morning dose. We will follow closely with you. Dallas Li MD
--- NOTE | 2017-07-22 14:00 | PN ---
DATE: 07/22/2017 SUBJECTIVE: The patient has no complaints of any chest pain, no shortness of breath, no headaches or dizziness. PHYSICAL EXAMINATION: VITAL SIGNS: Temperature is 98.4, pulse of 74, blood pressure is 155/80, respiratory of 20. GENERAL: The patient is lying in bed, flat, comfortable. HEENT: No oral lesion. Anicteric sclerae. Moist mucosa. NECK: No JVD, adenopathy, or thyromegaly. CARDIOVASCULAR: S1 and S2, regular. No murmurs, rubs, or gallops. LUNGS: Clear to auscultation bilaterally. No wheeze, rales, or rhonchi. ABDOMEN: Bowel sounds are positive, soft, nontender and nondistended. EXTREMITIES: No cyanosis, clubbing or edema. LABORATORY DATA: Creatinine is 0.9. ASSESSMENT: 1. Left foot first toe amputation, status post I and D of wound. 2. Osteomyelitis. 3. Peripheral arterial disease. 4. Hypertension. 5. Diabetes type 2. 6. Coronary artery disease. PLAN: The patient is currently comfortable. He is on Amaryl for diabetes. He is going to continue with Flomax for BPH. The patient is on Lovenox for DVT prophylaxis. He is on Synthroid for hypothyroidism. The patient is going to continue with Zosyn for antibiotics. He is being followed by Dr. Li and Dr. Alva. Edmund Patel MD
[2017-07-23] MEDS: Insulin Lispro (HUMAlog) HIGH Coverage SC SCH ×5 (00:01→23:01)
[2017-07-23] MEDS: Piperacillin/Tazobact 3.375 gm 100 ML IVPB SCH ×4 (00:03→23:02)
[2017-07-23] MEDS: Vancomycin 1gm in NS 250ml 1 GM/250 ML BAG IVPB SCH (07:27)
--- NOTE | 2017-07-23 08:23 | OP ---
PROCEDURE DATE: 07/20/2017 PREOPERATIVE DIAGNOSIS: Infected left foot, postoperative site. POSTOPERATIVE DIAGNOSIS: Infected left foot, postoperative site. NAME OF PROCEDURE: Incision and drainage of open left foot postoperative site with incision of Keshav-Gregory drain and closure. SURGEON: Loc Alva DPM MANAGER STRATEGIC SOURCING: Austin Yeager DPM TYPE OF ANESTHESIA: IV sedation with local. ANESTHESIA ADMINISTERED BY: Elsie Hebert PA-C INDICATION: The patient is a 62-year-old male with the above diagnosis. The patient has exhausted all conservative treatments at this time and now requires surgical intervention. The patient signed the consent after careful explanation of risks, benefits, complications, and alternatives of the surgical procedure. No guarantees were given nor implied. N.p.o status was confirmed prior to taking the patient to the OR. PREPARATION: The patient was brought into the operating room and placed on the operating room table in a supine position. Time-out was performed for identification of the correct patient and procedure. After induction of IV sedation, the patient received a total of 20 mL of a 1:1 mixture of 0.5% Marcaine plain and 1% lidocaine plain in a local block fashion to the left foot. The left lower extremity was then prepped and draped in a normal sterile manner and the procedure was begun. No tourniquet was used during the procedure. DESCRIPTION OF PROCEDURE: 1. Attention was then turned to the patient's left first ray, when the patient had received 2 previous amputations. The first amputation was at the hallux on 07/10/2017, the surgical site became infected and the patient was brought in for an incision and drainage of the site on 07/18/2017. The surgical site was left open at that time and packed with 1/4 inch packing. During today's procedure, the packing was removed from the surgical site. The site was then flushed with copious amounts of normal sterile saline. A stab incision was made proximal and medial to the surgical site with a tip of a number 15 blade. number 15 blade, with the tip of the blade introduced into the surgical site. A SELINA drain was then introduced into the surgical site through the stab incision and the site was closed with superficial sutures using 3-0 nylon. The remaining surgical site was then closed with deep sutures using 3-0 Vicryl, superficial sutures using 3-0 nylon and surgical chan. The surgical site was then dressed with Betadine soaked Adaptic gauze, Kerlix, Coban and lightly applied KAREN dressing. POST OPERATIVE CONDITION: The patient tolerated the anesthesia and procedure well and was escorted to the recovery room with vital signs stable and neurovascular status intact to the right lower extremity. The patient is to remain nonweightbearing to right lower extremity. Podiatry will continue to follow the patient while he remains in-house. Austin Yeager DPM Loc Alva DPM JOANNA
--- NOTE | 2017-07-23 08:24 | OP ---
PROCEDURE DATE: 07/20/2017 INDICATIONS: A 62-year-old diabetic male, who was brought back into the operating room today for flush-out of infective postoperative wound with Keshav-Gregory insertion and wound closure. PROCEDURE IN DETAIL: The patient was brought into the operating room and transferred from his treatment bed onto the operating room table in the supine position. Following IV sedation, a local anesthetic was given consisting of 0.5% Marcaine plain and 1% lidocaine plain in the costello block fashion. The injection consisted of 14 mL of 1:1 ratio of 1% lidocaine plain and 0.5% Marcaine plain. The foot was then scrubbed, prepped and draped in the usual aseptic manner. Attention was directed to the left first metatarsal phalangeal joint where the hallux was amputated and the first metatarsal head was resected. The resultant wound presents with granular tissue, serous drainage. No purulence. No abscess formation. No malodor. The wound was flushed with copious amount of normal sterile saline. A culture was taken and submitted for sensitivities. A Keshav-Gregory drain was measured and placed into the operative area. The wound was closed with 3-0 Vicryl subcuticularly and 3-0 nylon simple and horizontal mattress sutures were applied over the incision site. The incision was reinforced with chan. Keshav-Gregory drain was activated in a closed fashion. It should be noted that there was excellent bleeding during the procedure and all of the wound tissues appeared granular and healthy at this time. The wound was dressed with Betadine-soaked Adaptic and covered with sterile gauze, sterile Kerlix, Coban, Mike wrap. After a period of postoperative monitoring, the patient will be brought back to his hospital room. We will resume all preop medications. We will await culture results. The patient will be seen and followed in the a.m. Dilaudid 0.5 mg was ordered for postoperative pain. Loc Alva DPM
[2017-07-23] MEDS: Enoxaparin 40 mg Syringe SC SCH (10:52)
[2017-07-23] MEDS: Levothyroxine 100 MCG TAB PO SCH (10:54)
--- NOTE | 2017-07-23 12:45 | PN ---
DATE: 07/23/2017 HISTORY: A 62-year-old male seen at bedside, status post left hallux amputation with postoperative infection that resulted in resection of the left first metatarsal head. The patient is resting comfortably and is afebrile. He has no pain and reports no complaints. PHYSICAL EXAMINATION: VITAL SIGNS: Reveal temperature 98.8, pulse rate of 80, blood pressure 130/71, and respiratory rate of 20. LABORATORY FINDINGS: Reveal white count of 7, hemoglobin of 8.9, hematocrit of 27, platelet count of 312, and his ESR is elevated at 135. The patient's most recent culture taken in the operating room after flush out reveals no organisms, no polymorphonuclear white blood cells. ASSESSMENT: Status post revision of left foot surgery secondary to postoperative infection. PLAN: The patient's foot was inspected, and there was found to be no signs of dehiscence or drainage at the dorsal incision site. All of the sutures are intact, well-coapted with no signs of dehiscence. There is decreased erythema and edema of the entire forefoot. No signs of cellulitis or ascending cellulitis. The foot was cleansed with normal sterile saline and application of Betadine solution along the incision site, sterile Adaptic, and a dry sterile dressing was applied. The patient was told he must ambulate using the forefoot offloading shoe at all times and not to take one step without shoe or he will open up his sutures, and he will have to be brought back to the hospital and into the operating room to close the wounds. The patient understands. The patient will follow up at [facility], when discharged weekly. We will continue with IV antibiotics as per Infectious Disease and p.o. antibiotics upon discharge will be determined by Infectious Disease. The patient will be seen in follow up while in-house. Loc Alva DPM
--- NOTE | 2017-07-23 17:13 | PN ---
SUBJECTIVE: The patient is 62 years old, seen and examined today, doing well. No fever. No chills. Eating and tolerating. No nausea or vomiting. No diarrhea. PHYSICAL EXAMINATION VITAL SIGNS: He is afebrile, pulse 75, respirations 20, blood pressure 150/80. LUNGS: Bilateral fair airflow. No rhonchi or crackle. HEART: S1 and S2 audible. ABDOMEN: Soft, nontender. No rebound, no guarding. NEUROLOGICAL: He is awake, alert, oriented, communicative. EXTREMITIES: Left foot is in the dressing. LABORATORY DATA: He is growing Streptococcus anginosus group that is sensitive to Rocephin, penicillin, and vancomycin. ASSESSMENT: 1. Left foot infected wound, growing Streptococcus. 2. Status post left foot first toe amputation. 3. Severe peripheral vascular disease. 4. Hypertension. 5. [id number] diabetes. 6. Coronary artery disease. PLAN: Currently, the patient is on Januvia 100 daily. He is getting DVT prophylaxis. He is on glimepiride 4 mg daily. He is getting insulin coverage accordingly according to the sliding scale. He is on Zosyn, we will continue that. I will request for TCU evaluation. Dr. Li to guide me how much more antibiotic he needed. If he can be switched to p.o., then he can be discharged home. Otherwise, we will send him to TCU to get physical therapy and complete his course of antibiotic. We will act according to his recommendation. Letty Couch MD
--- NOTE | 2017-07-23 19:25 | CP.PCM.PN ---
Subjective - Date & Time of Evaluation Date of Evaluation: 07/23/17 Time of Evaluation: 17:15 - Subjective Subjective: Comfortable, no fevers. Objective - Vital Signs/Intake and Output Vital Signs (last 24 hours): Temp Pulse Resp BP Pulse Ox 98.8 F 92 H 20 129/59 L 98 07/23/17 16:00 07/23/17 16:00 07/23/17 16:00 07/23/17 16:00 07/23/17 16:00 Intake and Output: 07/23/17 07/23/17 06:59 18:59 Intake Total 1390 Output Total 250 750 Balance -250 640 - Medications Medications: Current Medications Acetaminophen (Tylenol 325mg Tab) 650 mg PO Q6H PRN PRN Reason: Fever >100.4 F Last Admin: 07/19/17 18:08 Dose: 650 mg Al Hydrox/Mg Hydrox/Simethicone (Maalox Plus 30 Ml) 30 ml PO DAILY PRN PRN Reason: Indigestion / Heartburn Last Admin: 07/19/17 20:49 Dose: 30 ml Aspirin (Ecotrin) 81 mg PO DAILY [facility] Last Admin: 07/23/17 10:51 Dose: 81 mg Enoxaparin Sodium (Lovenox) 40 mg SC DAILY [facility] PRN Reason: Protocol Last Admin: 07/23/17 10:52 Dose: 40 mg Glimepiride (Amaryl) 4 mg PO DAILY [facility] Last Admin: 07/23/17 10:51 Dose: 4 mg Piperacillin Sod/Tazobactam Sod (Zosyn 3.375 In Ns 100ml) 100 mls @ 200 mls/hr IVPB Q6 [facility] PRN Reason: Protocol Stop: 07/25/17 00:01 Last Admin: 07/23/17 12:10 Dose: 200 mls/hr Insulin Human Lispro (Humalog High) 0 units SC ACHS [facility] PRN Reason: Protocol Last Admin: 07/23/17 12:09 Dose: 4 units Levothyroxine Sodium (Synthroid) 100 mcg PO QAM [facility] Last Admin: 07/23/17 10:54 Dose: 100 mcg Ondansetron HCl (Zofran Inj) 4 mg IVP ONCE PRN PRN Reason: Nausea/Vomiting Pantoprazole Sodium (Protonix Ec Tab) 40 mg PO 0600 [facility] Last Admin: 07/22/17 05:34 Dose: 40 mg Sitagliptin Phosphate (Januvia) 100 mg PO DAILY [facility] Last Admin: 07/23/17 10:51 Dose: 100 mg Tamsulosin HCl (Flomax) 0.4 mg PO DAILY [facility] Last Admin: 07/23/17 10:51 Dose: 0.4 mg - Labs Labs: 07/21/17 10:00 07/19/17 05:20 - Constitutional Appears: Non-toxic, No Acute Distress - Head Exam Head Exam: NORMAL INSPECTION - Neck Exam Neck Exam: absent: Meningismus - Respiratory Exam Respiratory Exam: Decreased Breath Sounds - Cardiovascular Exam Cardiovascular Exam: +S1, +S2 - GI/Abdominal Exam GI & Abdominal Exam: Soft. absent: Tenderness Assessment and Plan - Assessment and Plan (Free Text) Plan: Assessment Left foot infection (skin and soft tissue infection and osteomyelitis) with S/P hallux amputation, S/P angioplasty for the left lower extremity; S/P I and D, resection of of 1st metatarsal head POD #5; pathology still showing acute osteomyelitis; bone growing Strep anginosus Syncope, etiology to be determined DM HTN CAD S/P CABG left foot infection S/P hallux amputation S/P angioplasty for the left lower extremity Plan continue Zosyn; reviewed pathology and bone cx - will need to discuss with Podiatry regarding OR pathology will continue to monitor clinically
[2017-07-24] MEDS: Pantoprazole 40 mg EC Tab PO SCH (06:23)
[2017-07-24] MEDS: Piperacillin/Tazobact 3.375 gm 100 ML IVPB SCH ×5 (06:23→23:27)
[2017-07-24] MEDS: Levothyroxine 100 MCG TAB PO SCH (10:27)
[2017-07-24] MEDS: Insulin Lispro (HUMAlog) HIGH Coverage SC SCH ×4 (10:27→22:19)
[2017-07-24] MEDS: Enoxaparin 40 mg Syringe SC SCH (10:27)
--- NOTE | 2017-07-24 11:39 | CP.PCM.PN ---
Subjective - Date & Time of Evaluation Date of Evaluation: 07/24/17 Time of Evaluation: 10:50 - Subjective Subjective: Comfortable on a chair, not in distress, ambulatory, no fevers overnight, left foot is feeling better. Objective - Vital Signs/Intake and Output Vital Signs (last 24 hours): Temp Pulse Resp BP Pulse Ox 98.5 F 68 20 140/80 100 07/24/17 08:17 07/24/17 08:17 07/24/17 08:17 07/24/17 08:17 07/24/17 08:17 Intake and Output: 07/24/17 07/24/17 06:59 18:59 Intake Total 380 240 Output Total 400 800 Balance -20 -560 - Medications Medications: Current Medications Acetaminophen (Tylenol 325mg Tab) 650 mg PO Q6H PRN PRN Reason: Fever >100.4 F Last Admin: 07/19/17 18:08 Dose: 650 mg Al Hydrox/Mg Hydrox/Simethicone (Maalox Plus 30 Ml) 30 ml PO DAILY PRN PRN Reason: Indigestion / Heartburn Last Admin: 07/19/17 20:49 Dose: 30 ml Aspirin (Ecotrin) 81 mg PO DAILY [facility] Last Admin: 07/23/17 10:51 Dose: 81 mg Enoxaparin Sodium (Lovenox) 40 mg SC DAILY [facility] PRN Reason: Protocol Last Admin: 07/23/17 10:52 Dose: 40 mg Glimepiride (Amaryl) 4 mg PO DAILY [facility] Last Admin: 07/23/17 10:51 Dose: 4 mg Piperacillin Sod/Tazobactam Sod (Zosyn 3.375 In Ns 100ml) 100 mls @ 200 mls/hr IVPB Q6 [facility] PRN Reason: Protocol Stop: 07/25/17 00:01 Last Admin: 07/24/17 06:23 Dose: 200 mls/hr Insulin Human Lispro (Humalog High) 0 units SC ACHS [facility] PRN Reason: Protocol Last Admin: 07/23/17 23:01 Dose: Not Given Levothyroxine Sodium (Synthroid) 100 mcg PO QAM [facility] Last Admin: 07/23/17 10:54 Dose: 100 mcg Ondansetron HCl (Zofran Inj) 4 mg IVP ONCE PRN PRN Reason: Nausea/Vomiting Pantoprazole Sodium (Protonix Ec Tab) 40 mg PO 0600 [facility] Last Admin: 07/24/17 06:23 Dose: 40 mg Sitagliptin Phosphate (Januvia) 100 mg PO DAILY [facility] Last Admin: 07/23/17 10:51 Dose: 100 mg Tamsulosin HCl (Flomax) 0.4 mg PO DAILY [facility] Last Admin: 07/23/17 10:51 Dose: 0.4 mg - Labs Labs: 07/21/17 10:00 07/19/17 05:20 - Constitutional Appears: Non-toxic, No Acute Distress - Head Exam Head Exam: NORMAL INSPECTION - ENT Exam ENT Exam: Mucous Membranes Moist - Neck Exam Neck Exam: absent: Meningismus - Respiratory Exam Respiratory Exam: Decreased Breath Sounds - Cardiovascular Exam Cardiovascular Exam: +S1, +S2 - GI/Abdominal Exam GI & Abdominal Exam: Soft. absent: Tenderness - Extremities Exam Additional comments: left foot with dressings and bandages in place Assessment and Plan - Assessment and Plan (Free Text) Plan: Assessment Left foot infection (skin and soft tissue infection and osteomyelitis) with S/P hallux amputation, S/P angioplasty for the left lower extremity; S/P I and D, resection of of 1st metatarsal head POD #6; pathology still showing acute osteomyelitis; bone growing Strep anginosus Syncope, etiology to be determined DM HTN CAD S/P CABG left foot infection S/P hallux amputation S/P angioplasty for the left lower extremity Plan continue Zosyn; reviewed pathology and bone cx - will need to discuss with Podiatry regarding OR pathology - we can de-escalate antibiotics to levaquin to cover the Strep anginosus found in bone and tissue will continue to monitor clinically
--- NOTE | 2017-07-24 15:54 | PN ---
SUBJECTIVE: A 62-year-old diabetic male seen at bedside status post left hallux amputation with left first metatarsal head resection. The patient is reporting no complaints and is resting comfortably. PHYSICAL EXAMINATION: VITAL SIGNS: Revealed temperature of 98.5, pulse rate of 68, blood pressure of 140/80, respiratory rate of 20. LABORATORY FINDINGS: Revealed white count of 7, hemoglobin of 8.9, hematocrit of 27.6, platelet count of 312. ESR 135. Most recent microbiology report reveals coagulase-negative Staphylococcus aureus growth in his left foot. The pathology report on his left metatarsal does show acute osteomyelitis throughout metatarsal bone that was submitted intraoperatively. OBJECTIVE: Weakly palpable pedal pulses noted bilaterally. Incision site on a dorsal left foot presents with no signs of dehiscence, all sutures intact, well coapted. No signs. There is minimal serous drainage emanating from the distal aspect of the wound at the incision site. It is serous in nature. There is no purulence. There is no edema or erythema or fluctuance to suggest underlying abscess formation. ASSESSMENT: Status post left first metatarsal resection secondary to osteomyelitis. PLAN: The patient's wound was inspected an application of Betadine and dry sterile dressing was applied to the foot. We will continue with IV antibiotics as per Infectious Disease. Would recommend transfer to Transitional Care Unit for continued antibiotics and physical therapy. The patient will be seen and followed daily. Loc Alva DPM
--- NOTE | 2017-07-24 18:35 | CT ---
PROCEDURE: CT HEAD WITHOUT CONTRAST. HISTORY: Near-syncope COMPARISON: 08/03/2013 TECHNIQUE: Axial computed tomography images were obtained through the head/brain without intravenous contrast. Radiation dose: Total exam DLP = 1185 mGy-cm. This CT exam was performed using one or more of the following dose reduction techniques: Automated exposure control, adjustment of the mA and/or kV according to patient size, and/or use of iterative reconstruction technique. FINDINGS: HEMORRHAGE: No intracranial hemorrhage. BRAIN: No mass effect or edema. Chronic microvascular changes are seen in the left periventricular white matter VENTRICLES: Unremarkable. No hydrocephalus. CALVARIUM: Unremarkable. PARANASAL SINUSES: Unremarkable as visualized. No significant inflammatory changes. MASTOID AIR CELLS: Unremarkable as visualized. No inflammatory changes. OTHER FINDINGS: None. IMPRESSION: No acute findings
--- NOTE | 2017-07-25 00:40 | PN ---
DATE: SUBJECTIVE: The patient is a 62-year-old, seen and examined, sitting in chair, seems to be comfortable. No fever. No chills. No nausea or vomiting. Eating and tolerating. PHYSICAL EXAMINATION: VITAL SIGNS: He is afebrile, pulse 89, respirations 20 and blood pressure 118/69. LUNGS: Bilateral fair air flow. No rhonchi or crackle. HEART: S1 and S2 audible. ABDOMEN: Soft and nontender. No rebound. No guarding. NEUROLOGIC: He is awake, alert, oriented and communicative. EXTREMITIES: Left foot is in the dressing. LABORATORY DATA: ESR is 135. Chemistry; blood sugar is 188. Vancomycin trough is 9.0. His OR culture grown coagulase-negative Staphylococcus and Streptococcus anginosus. PLAN: ID and Podiatry input noticed and appreciated. Spoke to Dr. Wayne. Since his bone margins are not clear, he has to be treated as osteomyelitis, so we will make arrangement for PICC line and the patient will be discharged in a.m. on Rocephin 1 g q. 24 hours for 4 to 6 weeks. So, we will make discharge plan in a.m., monitor blood sugar and follow the patient. Letty Couch MD
[2017-07-25] MEDS: Piperacillin/Tazobact 3.375 gm 100 ML IVPB SCH ×2 (06:26→11:00)
[2017-07-25] MEDS: Pantoprazole 40 mg EC Tab PO SCH (06:27)
[2017-07-25] MEDS: Insulin Lispro (HUMAlog) HIGH Coverage SC SCH ×2 (08:42→12:41)
[2017-07-25 09:06] VITALS: BP 169/80; PULSE 63; TEMP 98.1; O2SAT 99
[2017-07-25] MEDS: Enoxaparin 40 mg Syringe SC SCH (10:56)
[2017-07-25] MEDS: Levothyroxine 100 MCG TAB PO SCH (10:56)
[2017-07-25] MEDS ORDERED: cefTRIAXone 1 gm 1 GM/100 ML BAG IVPB SCH (13:00)
--- NOTE | 2017-07-25 13:06 | PN ---
DATE: SUBJECTIVE: This 62-year-old diabetic male seen at bedside, status post left first metatarsal resection secondary to osteomyelitis. The patient's most recent pathology report reveals osteomyelitic first metatarsal bone, which will require 4 to 6 weeks IV antibiotics. The patient is resting comfortably and has been afebrile. OBJECTIVE: VITAL SIGNS: Revealed temperature 98.1, pulse rate of 63, blood pressure of 169/80, and respiratory rate of 20. EXTREMITIES: Weakly palpable pedal pulses noted bilaterally. Incision site on the dorsal aspect of the left foot at the first metatarsophalangeal joint presents with all sutures intact while coapted. No signs of dehiscence. There is minimal amount of serous drainage at the distal aspect of the incision site. It is serous in nature. There is no purulence noted. There is edema or erythema to suggest underlying abscess formation. LABORATORY FINDING: Reveal white count of 7, hemoglobin of 8.9, hematocrit of 27.6, and platelet count of 312. Most recent microbiology report reveals coagulase-negative Staphylococcus aureus growing out of his wound and his pathology report from the OR shows osteomyelitic bone. ASSESSMENT: Status post left first metatarsal resection secondary to osteomyelitis. PLAN: The patient's wound was inspected and cleansed with normal sterile saline and application of Iodosorb cream, Maxorb, and a dry sterile dressing was applied. The patient had PICC line insertion yesterday. The plan is to discharge the patient home, where he will receive once daily IV antibiotic infusions with Rocephin 1 g daily. [facility] Nursing Services will be called in to change his dressing on and Saturdays as followed: Cleanse the wound with normal sterile saline, apply Betadine solution to the incision site, nonadherent to sterile 4x4, Kerlix, and Mike wrap. He will follow up with [facility] on Tuesdays. blood work will be performed at home. The patient will be seen and followed while in-house. Loc Alva DPM
--- NOTE | 2017-07-25 13:17 | CP.PCM.PN ---
Subjective - Date & Time of Evaluation Date of Evaluation: 07/25/17 Time of Evaluation: 10:40 - Subjective Subjective: Comfortable, improved pain in the left foot, no fevers overnight. Objective - Vital Signs/Intake and Output Vital Signs (last 24 hours): Temp Pulse Resp BP Pulse Ox 98.1 F 63 20 169/80 H 99 07/25/17 09:05 07/25/17 09:05 07/25/17 09:05 07/25/17 09:05 07/25/17 09:05 Intake and Output: 07/25/17 07/25/17 06:59 18:59 Intake Total 500 120 Output Total 500 Balance 500 -380 - Medications Medications: Current Medications Acetaminophen (Tylenol 325mg Tab) 650 mg PO Q6H PRN PRN Reason: Fever >100.4 F Last Admin: 07/19/17 18:08 Dose: 650 mg Al Hydrox/Mg Hydrox/Simethicone (Maalox Plus 30 Ml) 30 ml PO DAILY PRN PRN Reason: Indigestion / Heartburn Last Admin: 07/19/17 20:49 Dose: 30 ml Aspirin (Ecotrin) 81 mg PO DAILY [facility] Last Admin: 07/24/17 10:24 Dose: 81 mg Enoxaparin Sodium (Lovenox) 40 mg SC DAILY [facility] PRN Reason: Protocol Last Admin: 07/24/17 10:27 Dose: 40 mg Glimepiride (Amaryl) 4 mg PO DAILY [facility] Last Admin: 07/24/17 10:24 Dose: 4 mg Piperacillin Sod/Tazobactam Sod (Zosyn 3.375 In Ns 100ml) 100 mls @ 200 mls/hr IVPB Q6 [facility] PRN Reason: Protocol Stop: 07/27/17 10:37 Last Admin: 07/25/17 06:26 Dose: 200 mls/hr Insulin Human Lispro (Humalog High) 0 units SC ACHS [facility] PRN Reason: Protocol Last Admin: 07/25/17 08:42 Dose: 1 units Levothyroxine Sodium (Synthroid) 100 mcg PO QAM [facility] Last Admin: 07/24/17 10:27 Dose: 100 mcg Ondansetron HCl (Zofran Inj) 4 mg IVP ONCE PRN PRN Reason: Nausea/Vomiting Pantoprazole Sodium (Protonix Ec Tab) 40 mg PO 0600 [facility] Last Admin: 07/25/17 06:27 Dose: 40 mg Sitagliptin Phosphate (Januvia) 100 mg PO DAILY [facility] Last Admin: 07/24/17 10:27 Dose: 100 mg Tamsulosin HCl (Flomax) 0.4 mg PO DAILY [facility] Last Admin: 07/24/17 10:25 Dose: 0.4 mg - Labs Labs: 07/21/17 10:00 07/19/17 05:20 - Constitutional Appears: Non-toxic - Head Exam Head Exam: NORMAL INSPECTION - ENT Exam ENT Exam: Mucous Membranes Moist - Neck Exam Neck Exam: absent: Meningismus - Respiratory Exam Respiratory Exam: Decreased Breath Sounds - Cardiovascular Exam Cardiovascular Exam: +S1, +S2 - GI/Abdominal Exam GI & Abdominal Exam: Soft. absent: Tenderness Assessment and Plan - Assessment and Plan (Free Text) Plan: Assessment Left foot infection (skin and soft tissue infection and osteomyelitis) with S/P hallux amputation, S/P angioplasty for the left lower extremity; S/P I and D, resection of of 1st metatarsal head POD #7; pathology still showing acute osteomyelitis; bone growing Strep anginosus Syncope, etiology to be determined DM HTN CAD S/P CABG left foot infection S/P hallux amputation S/P angioplasty for the left lower extremity Plan on Zosyn and can be switched to Ceftriaxone for 4-6 weeks with weekly ESR, CRP, CBC, CMP; reviewed pathology and bone cx with Podiatry regarding OR pathology will continue to monitor clinically
--- NOTE | 2017-07-26 03:01 | DS ---
HISTORY OF PRESENT ILLNESS: The patient is a 62-year-old who was admitted on 07/17/2017 when he had left hallux amputation done a week prior to coming to the hospital. He came for wound check with Dr. Alva who found that to be infected, so he was referred to the emergency room. On his way, he almost passed out. According to who was at bedside that he took the pain medication, he was hungry and at the same time that could be the reason for his syncope; however, he was admitted, had I and D done, and the OR biopsy shows osteomyelitis. He also grew coag-negative Staph and Streptococcus anginosus. His wound care was done by Dr. Alva and Dr. Wayne who was also following the patient who recommended to treat him as osteomyelitis, so the patient has a PICC line placed in his left arm and being discharged home on home infusion and arrangement is made and he is being discharged today. PHYSICAL EXAMINATION: GENERAL: Today; he is awake, alert, and oriented. VITAL SIGNS: He is afebrile, pulse 63, respirations 20, and blood pressure 118/69. LUNGS: Bilateral fair airflow. No rhonchi or crackle. HEART: S1 and S2 audible. ABDOMEN: Soft and nontender. No rebound. No guarding. NEUROLOGIC: He is awake,alert, oriented, communicative, and ambulate with pressure to the left heel. His left foot is in the dressing. ASSESSMENT: 1. Left foot osteomyelitis, status post incision and drainage. 2. [id number] diabetes. 3. Hypertension. 4. Hyperlipidemia. 5. Coronary artery disease, status post angioplasty. 6. Hypothyroidism. PLAN: The patient is going to be discharged home today with home infusion. He will be receiving Rocephin daily for 6 weeks and his blood work will be followed by Dr. Wayne and Dr. Whitley. He will resume his medications including Percocet as needed, Flomax 0.4 at bedtime, Januvia 100 daily, levothyroxine 100 mcg daily, glimepiride 4 mg daily, aspirin 81 daily and Toujeo 30 units at bedtime, and he will be followed by his PMD and Dr. Alva. Letty Couch MD
== END 2017-07-25 16:05 | disposition home or self-care (01) | DRG 857 ==
LOC: ED 11:54 → ERH 13:07 → 2RNO 14:33 → 3RSO 07-19 18:39
PROVIDERS: ADMIT Internal Medicine; ATTEND Internal Medicine
PROC: 0QBP0ZZ Excision of Left Metatarsal, Open Approach (ICD-10-PCS; principal; 2017-07-18 16:30)
PROC: 0J9R00Z Drainage of Left Foot Subcutaneous Tissue and Fascia with Drainage Device, Open Approach (ICD-10-PCS; 2017-07-20)
PROC: 02HV33Z Insertion of Infusion Device into Superior Vena Cava, Percutaneous Approach (ICD-10-PCS; 2017-07-24)
PROC: B548ZZA Ultrasonography of Superior Vena Cava, Guidance (ICD-10-PCS; 2017-07-24)
DX: T81.4XXA Infection following a procedure, initial encounter (principal); M86.172 Other acute osteomyelitis, left ankle and foot; E11.69 Type 2 diabetes mellitus with other specified complication; E11.52 Type 2 diabetes mellitus with diabetic peripheral angiopathy with gangrene; I10 Essential (primary) hypertension; B95.4 Other streptococcus as the cause of diseases classified elsewhere; I25.10 Atherosclerotic heart disease of native coronary artery without angina pectoris; E78.00 Pure hypercholesterolemia, unspecified; R50.9 Fever, unspecified; R00.0 Tachycardia, unspecified; E03.9 Hypothyroidism, unspecified; D64.9 Anemia, unspecified; Y83.5 Amputation of limb(s) as the cause of abnormal reaction of the patient, or of later complication, without mention of misadventure at the time of the procedure; Z79.4 Long term (current) use of insulin; Z98.61 Coronary angioplasty status; Z95.1 Presence of aortocoronary bypass graft

== ENCOUNTER 2018-08-31 20:55 | Inpatient (IN) | payer BC ==
--- NOTE | 2018-08-31 21:21 | ED PDOC ---
Arrival/HPI - General Chief Complaint: Groin Pain Time Seen by Provider: 08/31/18 21:06 Historian: Patient - History of Present Illness Narrative History of Present Illness (Text): 08/31/18 21:18 63 year old male, whose past medical history includes NIDDM, HTN, CAD, angioplasty, CABG, and peripheral vascular disease, who presents to the ED complaining of a lump on the rt groin today. Patient states he experienced a sharp pain earlier but it resolved. Patient denies any fever, chills, nausea, vomiting, diarrhea, back pain, chest pain, or any other complaints. Time/Duration: Other (today) Symptom Onset: Gradual Symptom Course: Unchanged Activities at Onset: Light Past Medical History - Provider Review Nursing Documentation Reviewed: Yes - Infectious Disease Hx of Infectious Diseases: None - Tetanus Immunization Tetanus Immunization: Unknown - Cardiac Hx Pacemaker: No - Pulmonary Hx Chronic Obstructive Pulmonary Disease (COPD): No - Neurological HX Cerebrovascular Accident: No - HEENT Hx HEENT Disorder: No Hx Blind: No Hx Cataracts: No Hx Deafness: No Hx Difficulty Chewing: No Hx Epistaxis: No Hx Glaucoma: No Hx Macular Degeneration: No - Renal Hx Renal Failure: No - Endocrine/Metabolic Hx Diabetes Mellitus Type 1: No Hx Diabetes Mellitus Type 2: No Hx Hypothyroidism: No - Hematological/Oncological Hx Cancer: No - Integumentary Hx Dermatological Disorder: No Hx Basal Cell Carcinoma: No Hx Eczema: No Hx Melanoma: No Hx Psoriasis: No Hx Squamous Cell Carcinoma: No - Musculoskeletal/Rheumatological Hx Musculoskeletal Disorders: No - Gastrointestinal Hx Gastrointestinal Disorders: No Hx Colostomy: No Hx Crohn's Disease: No Hx Diverticulitis: No Hx Gall Bladder Disease: No Hx Gastroesophageal Reflux: No Hx Ileostomy: No Hx Liver Failure: No Hx Pancreatitis: No HX Swallowing Problems: No - Genitourinary/Gynecological Hx Genitourinary Disorders: No Hx Hematuria: No Hx Incontinence: No Hx Prostate Problems: Yes (turp) Hx Sexually Transmitted Diseases: No Hx Urinary Tract Infection: No - Psychiatric Hx Emotional Abuse: No Hx Physical Abuse: No Hx Substance Use: No - Surgical History Hx Mastectomy: No - Anesthesia Hx Anesthesia Reactions: No Hx Malignant Hyperthermia: No - Suicidal Assessment Feels Threatened In Home Enviroment: No Family/Social History - Physician Review Nursing Documentation Reviewed: Yes Family/Social History: No Known Family HX Smoking Status: Never Smoked Hx Alcohol Use: No Hx Substance Use: No Hx Substance Use Treatment: No Allergies/Home Meds Allergies/Adverse Reactions: Allergies No Known Allergies Allergy (Verified 08/03/13 09:21) Home Medications: Home Meds Medication Instructions Recorded Confirmed Tamsulosin [Flomax] 0.4 mg PO DAILY 08/03/13 07/10/17 Aspirin [Ecotrin] 81 mg PO DAILY 05/15/17 07/03/17 Glimepiride [Amaryl] 4 mg PO DAILY 05/15/17 07/10/17 Insulin Glargine,Hum.rec.anlog 30 unit SQ HS 05/15/17 07/10/17 [Toujeo Solostar] Levothyroxine [Synthroid] 100 mcg PO QAM 05/15/17 07/10/17 SITagliptin [Januvia] 100 mg PO DAILY 05/15/17 07/10/17 Ciprofloxacin [Cipro] 500 mg PO BID 07/03/17 07/10/17 oxyCODONE/Acetaminophen 1/2TAB 0.5 ea PO Q6 MDD 4 07/10/17 07/10/17 [Percocet 5-325 mg HALF TAB] Review of Systems - Physician Review All systems were reviewed & negative as marked: Yes - Review of Systems Constitutional: Normal Eyes: Normal ENT: Normal Respiratory: Normal. absent: SOB, Cough Cardiovascular: Normal. absent: Chest Pain Gastrointestinal: Normal. absent: Abdominal Pain, Diarrhea, Nausea, Vomiting Genitourinary Male: Normal. absent: Dysuria, Frequency Musculoskeletal: Normal. absent: Back Pain, Neck Pain Skin: Other (lump on rt groin). absent: Rash Neurological: Normal. absent: Headache, Dizziness Endocrine: Normal Hemo/Lymphatic: Normal Psychiatric: Normal Physical Exam Vital Signs Reviewed: Yes Temperature: Afebrile Blood Pressure: Normal Pulse: Regular Respiratory Rate: Normal Appearance: Positive for: Well-Appearing, Non-Toxic, Comfortable Pain Distress: None Mental Status: Positive for: Alert and Oriented X 3 - Systems Exam Head: Present: Atraumatic, Normocephalic Pupils: Present: PERRL Extroacular Muscles: Present: EOMI Conjunctiva: Present: Normal Mouth: Present: Moist Mucous Membranes Neck: Present: Normal Range of Motion Respiratory/Chest: Present: Clear to Auscultation, Good Air Exchange. No: Respiratory Distress, Accessory Muscle Use Cardiovascular: Present: Regular Rate and Rhythm, Normal S1, S2. No: Murmurs Abdomen: No: Tenderness, Distention, Peritoneal Signs Genitourinary Male: Present: Hernias (reducible rt inguinal hernia ), Other (testicle distention). No: Testicle Tenderness Back: Present: Normal Inspection Upper Extremity: Present: Normal Inspection. No: Cyanosis, Edema Lower Extremity: Present: Normal Inspection. No: Edema Neurological: Present: GCS=15, CN II-XII Intact, Speech Normal Skin: Present: Warm, Dry, Normal Color. No: Rashes Psychiatric: Present: Alert, Oriented x 3, Normal Insight, Normal Concentration Medical Decision Making ED Course and Treatment: 08/31/18 21:25 Impression: 63 year old male presents to the ED complaining of a lump on the rt groin. Plan: -- reassess and disposition Progress Notes: 08/31/18 22:[address] Lobato, who is covering for Dr. Couch.Accepts to her service pending CT scan.Pt. also evaluated by surgical nurse Dave who also agrees with CT scan Abd/Pelvis w/ contrast to rule out incarceration. 09/01/18 02:21 CT abd/pelvis reviewed, shows: IMPRESSION: Significantly distended bladder. Right inguinal hernia containing noninflamed normal appendix without incarceration. Mild bilateral fullness of the collecting systems which is probably secondary to back pressure from distended bladder. Uncomplicated colonic diverticulosis. Moderate amount of fecal residue and large bowels, probably moderate constipation. - Scribe Statement The provider has reviewed the documentation as recorded by the Scribe Hortencia Castillo All medical record entries made by the Scribe were at my direction and personally dictated by me. I have reviewed the chart and agree that the record accurately reflects my personal performance of the history, physical exam, medical decision making, and the department course for this patient. I have also personally directed, reviewed, and agree with the discharge instructions and disposition. Disposition/Present on Arrival - Present on Arrival Any Indicators Present on Arrival: No History of DVT/PE: No History of Uncontrolled Diabetes: Yes Urinary Catheter: No History of Decub. Ulcer: No History Surgical Site Infection Following: Orthopedic Procedures - Disposition Have Diagnosis and Disposition been Completed?: Yes Diagnosis: Inguinal hernia, Intermittent abdominal pain Disposition: HOSPITALIZED Disposition Time: :24 Patient Problems: Current Active Problems Problem Status Onset Inguinal hernia Acute Intermittent abdominal pain Acute Condition: STABLE Referrals: Rosalva Whitley DO [Primary Care Provider] - Follow up with primary Forms: [employer] (Indonesian)
[2018-08-31 21:54] LABS: HEMOGLOBIN 11.7 g/dL (14.0-18.0); MEAN CELL VOLUME 82.4 fl (80.0-105.0); MEAN CORPUSCULAR HGB CONC 32.8 g/dl (31.0-37.0); RBC 4.33 10^6/uL (3.5-6.1); RED CELL DISTRIBUTION WIDTH 12.9 % (11.5-14.5)
[2018-08-31 22:04] LABS: INR 0.95; PARTIAL THROMBOPLASTIN TIME 25.3 Seconds (25.1-36.5); PROTHROMBIN TIME 10.8 SECONDS (9.4-12.5)
--- NOTE | 2018-08-31 22:09 | CP.PCM.CON ---
<Dave Cisneros - Last Filed: 09/01/18 06:27> History of Present Illness - History of Present Illness History of Present Illness: 63M with PMHx of HTN, DM, PAD, and hx of CABG. Presents to [facility] with complaints of right groin pain. Patient states for the past couple of weeks he has felt pressure like sensation in his right groin. However, today he experienced a sharp shooting pain traveling across his right groin when bending or squatting. Patient describes pain as an 8/10. He denies any fever/chills, nausea/vomiting, diarrhea. PMHx: as stated above PSurgHx: CABG (2011), left hallux amputatio Allergies: NKDA Fam Hx: non contributory Review of Systems - Review of Systems Review of Systems: 10 pt ROS unremarkable except as stated in HPI Past Patient History - Infectious Disease Hx of Infectious Diseases: None - Tetanus Immunizations Tetanus Immunization: Unknown - Past Social History Smoking Status: Never Smoked - CARDIAC Hx Pacemaker: No - PULMONARY Hx Chronic Obstructive Pulmonary Disease (COPD): No - NEUROLOGICAL HX Cerebrovascular Accident: No - HEENT Hx HEENT Problems: No Hx Blind: No Hx Cataracts: No Hx Deafness: No Hx Difficulty Chewing: No Hx Epistaxis: No Hx Glaucoma: No Hx Macular Degeneration: No - RENAL Hx Renal Failure: No - ENDOCRINE/METABOLIC Hx Diabetes Mellitus Type 1: No Hx Diabetes Mellitus Type 2: No Hx Hypothyroidism: No - HEMATOLOGICAL/ONCOLOGICAL Hx Cancer: No - INTEGUMENTARY Hx Dermatological Problems: No Hx Basil Cell: No Hx Eczema: No Hx Melanoma: No Hx Psoriasis: No Hx Squamous Cell: No - MUSCULOSKELETAL/RHEUMATOLOGICAL Hx Musculoskeletal Disorders: No - GASTROINTESTINAL Hx Gastrointestinal Disorders: No Hx Colostomy: No Hx Crohn's Disease: No Hx Diverticulitis: No Hx Gall Bladder Disease: No Hx Gastroesophageal Reflux: No Hx Ileostomy: No Hx Liver Failure: No Hx Pancreatitis: No HX Swallowing Problems: No - GENITOURINARY/GYNECOLOGICAL Hx Genitourinary Disorders: No Hx Hematuria: No Hx Incontinence: No Hx Prostate Problems: Yes (turp) Hx Sexually Transmitted Disorders: No Hx Urinary Tract Infection: No - PSYCHIATRIC Hx Emotional Abuse: No Hx Physical Abuse: No Hx Substance Use: No - SURGICAL HISTORY Hx Mastectomy: No - ANESTHESIA Hx Anesthesia Reactions: No Hx Malignant Hyperthermia: No Meds Allergies/Adverse Reactions: Allergies Allergy/AdvReac Type Severity Reaction Status Date / Time No Known Allergies Allergy Verified 08/03/13 09:21 Physical Exam - Constitutional Appears: Non-toxic, No Acute Distress - Head Exam Head Exam: NORMOCEPHALIC - Eye Exam Eye Exam: EOMI, Normal appearance - ENT Exam ENT Exam: Mucous Membranes Moist - Respiratory Exam Respiratory Exam: NORMAL BREATHING PATTERN - Cardiovascular Exam Cardiovascular Exam: +S1, +S2 - GI/Abdominal Exam GI & Abdominal Exam: Hernia, Soft, Tenderness. absent: Distended, Firm, Guarding, Rebound, Rigid Additional comments: right groin tenderness +right groin hernia small inguinal defect, able to reduce small bowel, patient experienced some discomfort during reduction of hernia - Neurological Exam Neurological exam: Alert, Oriented x3 - Psychiatric Exam Psychiatric exam: Normal Mood - Skin Skin Exam: Dry, Intact, Warm Results - Labs Result Diagrams: 08/31/18 21:41 08/31/18 21:41 Labs: Laboratory Results - last 24 hr 08/31/18 08/31/18 21:41 21:41 WBC 7.0 RBC 4.33 Hgb 11.7 L D Hct 35.7 L MCV 82.4 MCH 27.0 MCHC 32.8 RDW 12.9 Plt Count 174 MPV 11.0 PT 10.8 INR 0.95 APTT 25.3 Assessment & Plan - Assessment and Plan (Free Text) Assessment: 63M with Amyand hernia Plan: Patient is not clinically obstructed Right inguinal hernia is reducible Recommend CT Abd & Pel with PO contrast F/u CBC, CMP Should patient require surgical intervention during this admission he will need cardiac clearance prior to OR Otherwise, recommend inguinal hernia repair be done electively as outpt Monitor bowel function Further recommendations pending image studies Further recs per Dr. Praveen Long PGY3 <Crispin Carmona - Last Filed: 09/05/18 10:43> Results - Vital Signs Recent Vital Signs: Last Vital Signs Temp 98.4 F 09/04/18 06:00 Pulse 71 09/04/18 06:00 Resp 18 09/04/18 06:00 BP 134/79 09/04/18 06:00 Pulse Ox 96 09/04/18 06:00 - Labs Result Diagrams: 09/04/18 05:45 09/04/18 05:45 Labs: Laboratory Results - last 24 hr 12/04/18 12/04/18 12/05/18 16:12 21:01 07:36 POC Glucose (mg/dL) 218 H 148 H 123 H 09/04/18 11:35 POC Glucose (mg/dL) 168 H Assessment & Plan - Assessment and Plan (Free Text) Plan: Dx Reduced Right Inguinal Hernia(Appendix found in the hernia sac post reduct ion) Needs Cardisc clearance(?NMST)preop This consult done under my direct supervision Alex Carmona MD FACS
[2018-08-31 22:14] LABS: ALB/GLOB RATIO 1.2 (1.1-1.8); ALBUMIN 4.2 g/dL (3.0-4.8); ALT/SGPT 24 U/L (7-56); AST/SGOT 21 U/L (17-59); BLOOD UREA NITROGEN 19 mg/dL (7-21); GFR NON-AFRICAN AMERICAN > 60
[2018-08-31] MEDS ORDERED: Iohexol 240 (50 ml) ONE (22:28)
[2018-09-01] MEDS ORDERED: Iohexol 350 MG/100 ML VIAL ONE (00:35)
[2018-09-01] MEDS ORDERED: Sodium Chloride 0.9% 1,000 ML IV STA (02:25)
[2018-09-01 03:50] VITALS: BMI 21.9
[2018-09-01] MEDS ORDERED: Dextrose 50% SYRINGE Inj (50 ml) IV PRN (06:21)
[2018-09-01] MEDS ORDERED: Insulin Reg-MEDIUM-Coverage SC SCH ×2 (06:30→07:30)
[2018-09-01] MEDS: Levothyroxine 100 MCG TAB PO SCH (09:34)
--- NOTE | 2018-09-01 12:13 | CT ---
Date of service: 09/01/2018 PROCEDURE: CT Abdomen and Pelvis. HISTORY: Right inguinal hernia/intermittent pain COMPARISON: No prior studies available comparison TECHNIQUE: Contiguous axial images of the abdomen and pelvis performed following oral and intravenous injection of approximately 100 cc Omnipaque 350 contrast material. Coronal and Sagittal reformats generated. Radiation dose: Total exam DLP = 502.19 mGy-cm. This CT exam was performed using one or more of the following dose reduction techniques: Automated exposure control, adjustment of the mA and/or kV according to patient size, and/or use of iterative reconstruction technique. FINDINGS: LOWER THORAX: Minor linear/curvilinear atelectasis seen both lung bases. LIVER: Liver is mildly enlarged measuring nearly 20 cm in CC dimension. Mild fatty hepatic infiltration. No obvious hepatic mass collection or calcification. Portal and splenic veins opacified. GALLBLADDER AND BILE DUCTS: Gallbladder physiologically distended. No evidence of intraluminal gallbladder calculi.. PANCREAS: Pancreas appears slightly atrophic and fatty replaced. SPLEEN: Unremarkable. No splenomegaly. Spleen exhibits normal size and attenuation pattern without mass collection or calcification. ADRENALS: No adrenal lesions. KIDNEYS AND URETERS: Unremarkable. No stone or hydronephrosis. Kidneys demonstrate symmetric nephrograms. No evidence of nephrolithiasis or hydronephrosis. BLADDER: Urinary bladder is markedly distended; rule out bladder outlet obstruction due to BPH. Minimal bladder wall thickening likely due to concomitant muscular hypertrophy. However note that the possibility of intrinsic/invasive wall lesion near the bladder floor abutting the enlarged encroaching prostate gland cannot be excluded.. REPRODUCTIVE: Unremarkable. Prostate gland is mildly enlarged measuring approximately 5 cm in transverse dimension. Prostate gland is heterogeneous with a few tiny calcifications. Findings likely due to BPH however correlation with PSA recommended to exclude prostatic carcinoma. APPENDIX: Normal appendix which is located within the tiny right inguinal hernia. BOWEL: Evaluation of the bowel is somewhat limited due to incomplete opacification. The stomach is of moderate to significantly distended with oral contrast material some food debris and air. Visualized loops of small bowel exhibit normal contour and caliber. No evidence of acute mechanical small bowel obstruction with oral contrast material seen extending to the level of the cecum at the ileocecal valve junction. The remainder of the colon is unopacified there is a large amount of stool seen throughout the colon consistent with fecal retention/constipation. The. No definitive evidence of mural wall thickening. PERITONEUM: No fluid collection. No free air. There is a tiny right-sided inguinal hernia that contains a normal-appearing appendix. LYMPH NODES: Multiple [id number] nonspecific upper abdominal and retroperitoneal lymph nodes, the largest adjacent to the portal vein and IVC measuring approximately 13 mm. VASCULATURE: Unremarkable. No aortic aneurysm. Mild moderate aortic atherosclerotic calcification or mural plaque present. BONES: Minor multilevel degenerative spondylosis of the lower thoracic and lumbar spine. No acute compression fractures no retropulsed fragments. OTHER FINDINGS: None. IMPRESSION: Hepatomegaly with mild fatty hepatic infiltration. Tiny right inguinal hernia that contains small amount of mesenteric fat and a normal appendix. There are multiple small nonspecific upper abdominal and retroperitoneal lymph nodes as above. Findings consistent with constipation. Enlarged prostate gland likely due to BPH however Clinical correlation with PSA recommended to exclude prostate carcinoma. Markedly enlarged urinary bladder likely due to bladder outlet obstruction due to BPH. However note that the possibility of intrinsic/invasive wall lesion near the bladder floor abutting the enlarged encroaching prostate gland cannot be excluded.. Clinical correlation recommended
[2018-09-01] MEDS: Oxycodone/Acetaminophen 5/325 mg Tab PO SCH ×3 (12:55→23:42)
[2018-09-01] MEDS: Insulin Reg-HIGH-Coverage SC SCH ×3 (12:56→22:42)
[2018-09-02] MEDS: Oxycodone/Acetaminophen 5/325 mg Tab PO SCH ×2 (05:49→13:43)
[2018-09-02 06:20] LABS: ALB/GLOB RATIO 1.1 (1.1-1.8); ALT/SGPT 23 U/L (7-56); AST/SGOT 20 U/L (17-59); BASO # 0.02 K/mm3 (0.0-2.0); BASO % 0.3 % (0.0-3.0); BLOOD UREA NITROGEN 21 mg/dL (7-21); EOS # 0.3 (0.0-0.7); EOS % 3.5 % (1.5-5.0); GFR NON-AFRICAN AMERICAN 56; GRAN # 3.8 (1.4-6.5); GRAN % 53.4 % (50.0-68.0); HDL CHOLESTEROL 49 mg/dL (29-60); HEMOGLOBIN 12.1 g/dL (14.0-18.0); LYMPH # 2.5 (1.2-3.4); LYMPH % 35.1 % (22.0-35.0); MEAN CELL VOLUME 83.5 fl (80.0-105.0); MEAN CORPUSCULAR HEMOGLOBIN 26.6 pg (25.0-35.0); MEAN CORPUSCULAR HGB CONC 31.8 g/dl (31.0-37.0); MEAN PLATELET VOLUME 10.9 fl (7.0-11.0); MONO # 0.6 (0.1-0.6); MONO % 7.7 % (1.0-6.0); RBC 4.55 10^6/uL (3.5-6.1); RED CELL DISTRIBUTION WIDTH 13.4 % (11.5-14.5); WHITE BLOOD COUNT 7.1 10^3/uL (4.5-11.0)
[2018-09-02 06:31] LABS: LDL CHOLESTEROL 58 mg/dL (0-129)
[2018-09-02] MEDS ORDERED: Magnesium Sulfate 2 gm/50 ml 2 GM/50 ML BAG IVPB ONE (07:19)
--- NOTE | 2018-09-02 07:31 | CP.PCM.PN ---
Subjective - Date & Time of Evaluation Date of Evaluation: 09/02/18 Time of Evaluation: 06:35 - Subjective Subjective: Patient seen and examined. No acute events over night. Denies nausea/vomiting. Denies groin pain. Scheduled for stress test today. Objective - Vital Signs/Intake and Output Vital Signs (last 24 hours): Temp Pulse Resp BP Pulse Ox 98.3 F 70 18 132/74 98 09/01/18 18:00 09/01/18 18:01 09/01/18 18:00 09/01/18 18:01 09/01/18 18:00 Intake and Output: 09/02/18 09/02/18 06:59 18:59 Intake Total 720 Output Total 800 Balance -80 - Medications Medications: Current Medications Acetaminophen (Tylenol 325mg Tab) 650 mg PO Q6H PRN PRN Reason: Pain, moderate (4-7) Aspirin (Ecotrin) 81 mg PO DAILY [facility] Last Admin: 09/01/18 09:31 Dose: 81 mg Dextrose (Dextrose 50% Inj) 0 ml IV STAT PRN; Protocol PRN Reason: Hypoglycemia Protocol Glimepiride (Amaryl) 4 mg PO BRK [facility] Last Admin: 09/01/18 12:57 Dose: 4 mg Dextrose (Dextrose 5% In Water 1000 Ml) 1,000 mls @ 0 mls/hr IV .Q0M PRN; Protocol PRN Reason: Hypoglycemia Protocol Magnesium Sulfate (Magnesium Sulfate 2 Gm/50 Ml Water) 2 gm in 50 mls @ 50 mls/hr IVPB ONCE ONE Stop: 09/02/18 08:18 Insulin Human Regular (Humulin R High) 0 units SC ACHS [facility]; Protocol Last Admin: 09/01/18 22:42 Dose: Not Given Levothyroxine Sodium (Synthroid) 100 mcg PO 0700 [facility] Last Admin: 09/01/18 09:34 Dose: 100 mcg Losartan Potassium (Cozaar) 50 mg PO DAILY [facility] Last Admin: 09/01/18 10:03 Dose: 50 mg Metoprolol Tartrate (Lopressor) 25 mg PO BID [facility] Last Admin: 09/01/18 18:01 Dose: 25 mg Oxycodone/Acetaminophen (Percocet 5/325 Mg Tab) 0.5 tab PO Q6 [facility] Stop: 09/04/18 12:01 Last Admin: 09/02/18 05:49 Dose: Not Given Sitagliptin Phosphate (Januvia) 100 mg PO DAILY [facility] Last Admin: 09/01/18 09:34 Dose: 100 mg Tamsulosin HCl (Flomax) 0.4 mg PO DAILY [facility] Last Admin: 09/01/18 09:31 Dose: 0.4 mg - Labs Labs: 09/02/18 05:35 09/02/18 05:35 PT 10.8 SECONDS (9.4-12.5) 08/31/18 21:41 INR 0.95 08/31/18 21:41 APTT 25.3 Seconds (25.1-36.5) 08/31/18 21:41 - Constitutional Appears: No Acute Distress - Head Exam Head Exam: NORMOCEPHALIC - Eye Exam Eye Exam: EOMI, Normal appearance - ENT Exam ENT Exam: Mucous Membranes Moist - Respiratory Exam Respiratory Exam: NORMAL BREATHING PATTERN - Cardiovascular Exam Cardiovascular Exam: +S1, +S2 - GI/Abdominal Exam GI & Abdominal Exam: Soft, Hernia Additional comments: R inguinal hernia - Neurological Exam Neurological Exam: Alert, Awake, Oriented x3 - Psychiatric Exam Psychiatric exam: Normal Mood - Skin Skin Exam: Dry, Intact, Warm Assessment and Plan - Assessment and Plan (Free Text) Assessment: 63M with Amyand's hernia Plan: Patient is not clinically obstructed Right inguinal hernia is reducible F/u stress test results Cardio recs appreciated Will plan for right inguinal hernia repair w/ mesh placement on 09/03 Replace electrolytes prn D/w Dr. Mathew Long PGY3
--- NOTE | 2018-09-02 07:49 | CP.PCM.PN ---
Subjective - Date & Time of Evaluation Date of Evaluation: 09/02/18 Time of Evaluation: 06:15 - Subjective Subjective: Awake, alert, no distress Reason for consultation and follow up:Cardiac evaluation for possible right inguinal hernia repair Seen and examined by me and Dr. Gayle Objective - Vital Signs/Intake and Output Vital Signs (last 24 hours): Temp Pulse Resp BP Pulse Ox 98.3 F 70 18 132/74 98 09/01/18 18:00 09/01/18 18:01 09/01/18 18:00 09/01/18 18:01 09/01/18 18:00 Intake and Output: 09/02/18 09/02/18 06:59 18:59 Intake Total 960 Output Total 800 Balance 160 - Medications Medications: Current Medications Acetaminophen (Tylenol 325mg Tab) 650 mg PO Q6H PRN PRN Reason: Pain, moderate (4-7) Aspirin (Ecotrin) 81 mg PO DAILY [facility] Last Admin: 09/01/18 09:31 Dose: 81 mg Dextrose (Dextrose 50% Inj) 0 ml IV STAT PRN; Protocol PRN Reason: Hypoglycemia Protocol Glimepiride (Amaryl) 4 mg PO BRK [facility] Last Admin: 09/01/18 12:57 Dose: 4 mg Dextrose (Dextrose 5% In Water 1000 Ml) 1,000 mls @ 0 mls/hr IV .Q0M PRN; Protocol PRN Reason: Hypoglycemia Protocol Magnesium Sulfate (Magnesium Sulfate 2 Gm/50 Ml Water) 2 gm in 50 mls @ 50 mls/hr IVPB ONCE ONE Stop: 09/02/18 08:18 Insulin Human Regular (Humulin R High) 0 units SC ACHS [facility]; Protocol Last Admin: 09/01/18 22:42 Dose: Not Given Levothyroxine Sodium (Synthroid) 100 mcg PO 0700 [facility] Last Admin: 09/01/18 09:34 Dose: 100 mcg Losartan Potassium (Cozaar) 50 mg PO DAILY [facility] Last Admin: 09/01/18 10:03 Dose: 50 mg Metoprolol Tartrate (Lopressor) 25 mg PO BID [facility] Last Admin: 09/01/18 18:01 Dose: 25 mg Oxycodone/Acetaminophen (Percocet 5/325 Mg Tab) 0.5 tab PO Q6 [facility] Stop: 09/04/18 12:01 Last Admin: 09/02/18 05:49 Dose: Not Given Sitagliptin Phosphate (Januvia) 100 mg PO DAILY [facility] Last Admin: 09/01/18 09:34 Dose: 100 mg Tamsulosin HCl (Flomax) 0.4 mg PO DAILY [facility] Last Admin: 09/01/18 09:31 Dose: 0.4 mg - Labs Labs: 09/02/18 05:35 09/02/18 05:35 PT 10.8 SECONDS (9.4-12.5) 08/31/18 21:41 INR 0.95 08/31/18 21:41 APTT 25.3 Seconds (25.1-36.5) 08/31/18 21:41 - Constitutional Appears: Non-toxic, No Acute Distress - Head Exam Head Exam: NORMAL INSPECTION, NORMOCEPHALIC - Eye Exam Eye Exam: Normal appearance Pupil Exam: NORMAL ACCOMODATION - ENT Exam ENT Exam: Mucous Membranes Moist, Normal Exam - Respiratory Exam Respiratory Exam: Clear to Ausculation Bilateral, NORMAL BREATHING PATTERN - Cardiovascular Exam Cardiovascular Exam: +S1, +S2 - GI/Abdominal Exam GI & Abdominal Exam: Soft, Normal Bowel Sounds - Extremities Exam Extremities Exam: Full ROM, Normal Capillary Refill Additional comments: right groin tenderness - Neurological Exam Neurological Exam: Alert, Awake, Oriented x3 - Psychiatric Exam Psychiatric exam: Normal Affect, Normal Mood - Skin Skin Exam: Dry, Normal Color, Warm Assessment and Plan - Assessment and Plan (Free Text) Assessment: A 63 year old male who came in to the ER due to right groin pain. History of coronary artery disease, CABG in 2011, peripheral vascular disease NIDDM,hypertension TURP.Cardiac evaluation was called prior to surgery. Denies chest pain or shortness of breath. For ECHO and Stress test today. Further recommendations after test. Plan: For stress test and ECHO today Denies chest pain or shortness of breath Heart rate controlled Blood pressure controlled Continue current treatment Continue current medications Further recommendation after stress test and echo Will follow up Plan and treatment discussed with Dr. Gayle
--- NOTE | 2018-09-02 07:51 | CON ---
DATE OF CONSULTATION: 09/01/2018 CONSULT SERVICE: Cardiology. REASON FOR CONSULTATION: Followup patient with possible right inguinal hernia surgery. BRIEF CLINICAL HISTORY: A 63-year-old male with past medical history significant for type 2 insulin diabetes, hypertension, hyperlipidemia, history of coronary artery disease, history of CABG 5 years ago, history of left toe amputation secondary to osteomyelitis, who was experiencing pain in right groin. This morning, the patient went to the shower and severely excruciating pain radiating to the right lower abdomen to the thigh. He dropped the soap in his hand and then decided to come to the emergency room. He denies any chest pain, shortness of breath, denies any palpitation. PAST MEDICAL HISTORY: Significant for coronary artery disease, status post CABG 5 years ago; diabetes; hypertension; hyperlipidemia. The patient walks up and down, very good functional capacity, no chest pain. He is scheduled for a stress test as an outpatient in next week, being followed by Dr. Shaniqua Manzo. SOCIAL HISTORY: Denies smoking. Denies any history of alcohol abuse. CURRENT MEDICATIONS: The patient at home, taking baby aspirin 81 mg daily, oxycodone, Flomax 0.4 mg daily, Januvia 100 mg daily, levothyroxine 100 mcg daily, glimepiride 4 mg daily, aspirin 81 mg daily, insulin 30 units subcutaneous daily. ALLERGIES: NO KNOW DRUG ALLERGY. REVIEW OF SYSTEMS: As per HPI. FAMILY HISTORY: Significant for type 2 diabetes. No history of coronary artery disease. PHYSICAL EXAMINATION: VITAL SIGNS: Height of the patient is 5 feet 11 inches, weight of the patient 157 pounds, body mass index 21.9 kg/m2. HEENT: PERRLA. Extraocular muscles intact. NECK: Supple. No carotid bruit or thyromegaly. CHEST: Clear to auscultation. HEART: S1 and S2, regular. ABDOMEN: Soft. EXTREMITIES: Clubbing and cyanosis negative. LABORATORY DATA: WBC 7, hemoglobin 11, hematocrit 35.7, platelet count 174. Chemistry shows sodium 130, potassium 4.4, chloride 103, carbon dioxide 75, anion gap of 14, BUN 19, and creatinine 0.9. EKG pending. IMPRESSION: A 63-year-old male with past medical significant for type 2 diabetes; hypertension; hyperlipidemia; coronary artery disease, status post coronary artery bypass grafting; history of amputation of the left toe, partial, because of the osteomyelitis. No history of recent myocardial infarction. No history of ischemia. No history of recent arrhythmia or congestive heart failure. The patient is cleared to go for emergency surgery for right inguinal hernia surgery if needed. Continue perioperative beta-shawn. Get the lipid profile, TSH, hemoglobin A1c. We will follow with you. We will clear the patient as a moderate risk with procedure because of the underlying comorbidity. No absolute contraindication for the procedure. Thank you, , for providing us the opportunity in taking care of your patient, Corby Brooks. We will follow with you. Ruth Gayle MD
[2018-09-02] MEDS: Insulin Reg-HIGH-Coverage SC SCH ×4 (08:50→23:05)
[2018-09-02] MEDS: Levothyroxine 100 MCG TAB PO SCH (09:04)
--- NOTE | 2018-09-02 09:41 | HP ---
DATE OF EXAM: 09/01/2018 CHIEF COMPLAINT AND HISTORY OF PRESENT ILLNESS: This is a 63-year-old male who was complaining of right groin pain. The patient said that he started taking shower yesterday night and started having pain. The patient says that pain was mild about 3-4/10. He was worried and came in for further evaluation. He said that the pain was sharp, but did resolve. He denies any abdominal pain or back pain. No dysuria, no frequency, no nocturia. He does have a history of diabetes type 2, hypertension, coronary artery disease, and CABG. REVIEW OF SYSTEMS: All other review of symptoms are within normal limits except as mentioned. HOME MEDICATIONS: Have been reviewed on the NOV. PAST MEDICAL HISTORY: As above. FAMILY HISTORY: Noncontributory. SOCIAL HISTORY: He denies smoking and drinking. Drinks socially. PHYSICAL EXAMINATION VITAL SIGNS: Temperature is 98, pulse of 69, blood pressure is 135/81, respirations are 20, and O2 saturation 98%. GENERAL: The patient lying in bed, uncomfortable, and in no acute distress. HEENT: Atraumatic and normocephalic. Anicteric sclerae. Moist mucosa. [place] conjunctivae. No oral lesions. NECK: No JVD, anterior and posterior adenopathy, thyromegaly, or bruits. CARDIOVASCULAR: S1 and S2 regular. No murmur, rubs, or gallop. LUNGS: Clear to auscultation bilaterally. No wheezes, rales, or rhonchi. ABDOMEN: Bowel sounds are positive. Soft, nontender and nondistended. No hepatosplenomegaly. No rebound and no guarding. In the right groin, he has tenderness on palpation. EXTREMITIES: No cyanosis, clubbing, or edema. NEUROLOGIC: No facial asymmetry. Tongue is midline. No uvula deviation. Power is 5/5 upper extremity and lower extremity. Sensation intact in upper extremity and lower extremity. PSYCHIATRIC: He is awake, alert and oriented x3. No anxiety or depression. He has normal affect. GENITOURINARY: No CVA tenderness. VASCULAR: 2+ pulses in the carotid pulses and pedal pulses. SKIN: No erythema or nodules SPINE: Shows normal curvature. LABORATORY DATA: White count 7.0, hemoglobin 11.7. INR is 0.95. Sodium is 138, potassium is 4.4, creatinine is 0.9, glucose of 245. The CT of the abdomen and pelvis has been reviewed. It shows moderate amount of feces probable from constipation. There is mild bilateral flush at the collecting system secondary to back pressure from the distended bladder. There is right inguinal hernia. There is normal appendix site incarceration. ASSESSMENT: 1. Right inguinal hernia. 2. Coronary artery disease. 3. Hypertension. 4. Diabetes type 2. PLAN: The patient is going to be admitted to the hospital. I have asked Dr. Queen to evaluate the patient. I will get to see also Dr. Gayle in case the patient needs surgery. The patient has losartan for hypertension, he is on Amaryl for diabetes. He is on aspirin for his coronary artery disease. The patient has Januvia for his diabetes as well. He was on IV fluids and normal saline. The patient is on Synthroid for hypothyroidism. He is on a heart healthy diet. At this point, I did speak to Surgery regarding the case. Edmund Patel MD
--- NOTE | 2018-09-02 11:13 | CP.PCM.PCO ---
Physician Communication Note - Physician Communication Note Physician Communication Note: NMST today-OR Sunday IF OK
--- NOTE | 2018-09-02 14:40 | PN ---
DATE: 09/02/2018 SUBJECTIVE: The patient is a 63-year-old, seen in Cardiology Department, having stress test, came in with a right inguinal pain, hernia was reduced, getting stress test, otherwise doing well. PHYSICAL EXAMINATION GENERAL: He is awake, alert, oriented, and communicative. VITAL SIGNS: He is afebrile, pulse 62, respirations 18 and blood pressure 132/70. LUNGS: Bilateral fair air flow, no rhonchi or crackles. HEART: S1 and S2 audible. ABDOMEN: Soft and nontender. No rebound. No guarding. Slight palpable discomfort in right inguinal area. NEUROLOGIC: He is awake, alert, oriented and communicative. LABORATORY EXAM: WBC is 7.1, hemoglobin 12, hematocrit 38 and platelets 182. Chemistry; sodium 140, potassium 4.9, chloride 107, CO2 of 27, BUN 21, creatinine 1.3, blood sugar of [address] scan of the abdomen and pelvis was done that shows hepatomegaly with fatty hepatic infiltration, tiny right inguinal hernia that contains small amount of mesenteric fat and normal appendix. There is multiple small nonspecific upper abdominal retroperitoneal lymphadenopathy and a large prostate. ASSESSMENT: 1. Right inguinal hernia. 2. Non-insulin dependent diabetes. 3. Hypertension. 4. Coronary artery disease, status post open heart surgery in 2011. 5. Peripheral vascular disease. 6. History of transurethral resection of the prostate. PLAN: The patient is going for echo and stress test; if cleared by Cardiology, can proceed for surgical intervention tomorrow. Letty Couch MD
--- NOTE | 2018-09-02 16:52 | PN ---
DATE: 09/02/2018 REASON FOR CONSULTATION AND FOLLOWUP: Cardiac evaluation, possible right inguinal hernia repair. This note is an addition to dictated by nurse practitioner. Yesterday, the patient was cleared for surgery, but Dr. Queen thinks the patient has already had scheduled for tomorrow for a stress test by the PMD, so he decided to hold the surgery and get the stress test, so the patient is scheduled for a stress test today. So the patient will get stress test and echo today as a preop and depending on clear the patient for surgery and interim continue baseline medication including low salt and metoprolol, aspirin has been hold for possible surgery. We will follow with you. TSH 2.74, LDL 58, HDL 49. History of hypertension, history of hyperlipidemia, history of coronary artery bypass surgery five days ago. Further recommendation after the stress test. Thank you for providing us the opportunity in taking care of patient, Todd Tavarez. Ruth Gayle MD
--- NOTE | 2018-09-02 17:10 | CARD ---
APPROVED REPORT Date of service: 09/02/2018 EXAM: Two-dimensional and M-mode echocardiogram with Doppler and color Doppler. INDICATION Chest Pain 2D DIMENSIONS Left Atrium (2D)3.7 (1.6-4.0cm)IVSd1.1 (0.7-1.1cm) LVDd4.5 (3.9-5.9cm)PWd1.1 (0.7-1.1cm) LVDs3.2 (2.5-4.0cm)FS (%) 30.0 % LVEF (%)57.4 (>50%) M-Mode DIMENSIONS Aortic Root3.50 (2.2-3.7cm)Aortic Cusp Exc.1.90 (1.5-2.0cm) Aortic Valve AoV Peak Ogddetpv737.0cm/Tamiko Peak GR.5mmHg Mitral Valve MV E Spfrzqpf92.3cm/sMV A Sjuxbmbw73.2cm/sE/A ratio0.9 TDI Lateral E' Peak V9.94cm/sMedial E' Peak V8.09cm/sE/Lateral E'5.7 E/Medial E'7.0 Pulmonary Valve PV Peak Lhcgdrui72.2cm/sPV Peak Grad.1mmHg Tricuspid Valve TR Peak Makfrazw271zs/sRAP OXUEKKRN96ubBdEK Peak Gr.21mmHg PNPS15ndMz LEFT VENTRICLE The left ventricle is normal size. There is normal left ventricular wall thickness. The left ventricular function is normal.EF-55% There is mild hypokinesis in the apical anterior wall. Transmitral Doppler flow pattern is Grade III-reversible restrictive diastolic dysfunction. No left ventricle thrombus noted on this study. There is no ventricular septal defect visualized. There is no left ventricular aneurysm. There is no mass noted in the left ventricle. RIGHT VENTRICLE The right ventricle is normal size. There is normal right ventricular wall thickness. The right ventricular systolic function is normal. ATRIA The left atrium size is normal. The right atrium size is normal. The interatrial septum is intact with no evidence for an atrial septal defect. AORTIC VALVE The aortic valve is thickened but opens well. The aortic valve is mildly sclerotic. There is trace aortic regurgitation. There is no aortic valvular stenosis. There is no aortic valvular vegetation. MITRAL VALVE The mitral valve is calcified but opens well. Mitral annular calcification is moderate. Mitral regurgitation is trace. There is no mitral valve stenosis. There is no evidence of mitral valve prolapse. TRICUSPID VALVE The tricuspid valve leaflets are thickened , but open well. There is trace tricuspid regurgitation.RVSP_31 mm of Hg. There is no tricuspid valve stenosis. There is no tricuspid valve prolapse or vegetation. PULMONIC VALVE The pulmonary valve is normal in structure. There is trace pulmonic valvular regurgitation. There is no pulmonic valvular stenosis. GREAT VESSELS The aortic root is normal in size. The ascending aorta is normal in size. The pulmonary artery is normal. The IVC is normal in size and collapses >50% with inspiration. PERICARDIAL EFFUSION There is no pleural effusion. There is no pericardial effusion. <Conclusion> Normal chamber Size.EF_55% There is trace aortic regurgitation. Mitral regurgitation is trace. There is trace tricuspid regurgitation.RVSP_31 mm of Hg. There is trace pulmonic valvular regurgitation. The IVC is normal in size and collapses >50% with inspiration. There is no pericardial effusion.
--- NOTE | 2018-09-02 22:09 | CARD ---
APPROVED REPORT Date of service: 09/02/2018 Protocol: FRANCO Test Type: Sestamibi Stress Test Attending Physician: Dr. Ana Maria Gayle Referring Physician: Dr. Letty Couch Test Indications: Pre-Op Evaluation Height:5 ft 11 in Weight:157lbs Medications: Losartan,Metoprolol,Januvia, Oxycodone/Acet., Tamsulosin HCl, Aspirin,Glimepiride,Humulin R, Levothyroxine Medical History: 63 y/o male. Hx of PVD, diabetic, hypertension, CABG. Target HR: 159 bpm Resting ECG: ST depression in V5-6 and T inversion in III,Avf Resting Heart Rate: 64 bpm Resting Blood Pressure: 120/80mmHg Submaximum (85%): 135 bpm POST EXERCISE Reason for Termination: Fatigue Target HR: No Max HR: 117 bpm 73% of Maximum Predicted HR: 159 bpm Exercise duration: 08:35 min:sec, 3 Stage Exercise capacity: 10.1METs Max Blood Pressure: 144/70mmHg Blood Pressure response to exercise: normal resting BP - appropriate response Heart Rate response to exercise: appropriate Chest Pain: No, none Angina index: 0 Arrhythmia: No, none ST Change: No, None from base line Deviation: 0 mm TEST SUMMARY [id number]/.0. [id number]/80.0. PRETESTHYPERV.00:[id number]/80.0. PRETESTWARM-UP11:[id number]/.0. EXERCISESTAGE 103:[id number]/70.0. EXERCISESTAGE 203:[id number]/70.0. EXERCISESTAGE 302:[id number]/70.0. [id number]/60.0. INTERPRETATION Stress EKG Conclusion: Negative stresstest for Ischemia and foer chest pain, Nuclear scan to follow. Signed by Ana Maria Gayle Electronically Approved: 09/02/2018 14:27:08 EXAM: Myocardial Perfusion REST/STRESS Stress Test Type: Pharmacologic Imaging Protocol Rest Spect myocardial perfusion imaging was performed in supine position 45 minutes following the injection of 10.3 mCi of Tc-99 Myoview. At peak stress, the patient was injected intravenously with 30.2mCi of Tc-99 tetrofosmin after an exercise time of 8 minutes and 36 seconds. Gated Stress Spect was performed 65 minutes after intravenous Tc-99 Myoview injection. The images were gated to evaluate regional wall motion and calculate ventricular ejection fraction.Images were reconstructed using backfilter projection method in short horizontal and verticle long axis. Spect slices were generated. LV Perfusion The quality of the study is good. The left ventricle is within normal limits in size. The right ventricle is unremarkable. The lung uptake is normal. The distribution of tracer reveals moderately and diffusely decreased perfusion in the inferior wall on the stress study. The remainder of the LV myocardium is unremarkable. The rest myocardial perfusion study shows no significant change. Wall Motion Wall motion study shows good contractility of the left ventricle. LVEF = 57%. Conclusion 1. Essentially normal SPECT myocardial perfusion study. 2. Fixed, inferior defect is most likely due to diaphragmatic attenuation. 3. Normal gated wall motion and thicknening of the left ventricle.
[2018-09-03 06:29] LABS: HEMOGLOBIN 11.6 g/dL (14.0-18.0); MEAN CELL VOLUME 82.6 fl (80.0-105.0); MEAN CORPUSCULAR HEMOGLOBIN 26.5 pg (25.0-35.0); MEAN CORPUSCULAR HGB CONC 32.1 g/dl (31.0-37.0); MEAN PLATELET VOLUME 12.1 fl (7.0-11.0); RBC 4.37 10^6/uL (3.5-6.1); RED CELL DISTRIBUTION WIDTH 13.3 % (11.5-14.5); WHITE BLOOD COUNT 6.5 10^3/uL (4.5-11.0)
[2018-09-03 06:32] LABS: INR 0.97; PARTIAL THROMBOPLASTIN TIME 25.2 Seconds (25.1-36.5); PROTHROMBIN TIME 11.2 SECONDS (9.4-12.5)
--- NOTE | 2018-09-03 06:56 | CP.PCM.PN ---
Subjective - Date & Time of Evaluation Date of Evaluation: 09/03/18 Time of Evaluation: 06:30 - Subjective Subjective: Sleeping but easily awaken, no distress Reason for consultation and follow up:Cardiac evaluation for possible right inguinal hernia repair Seen and examined by me and Dr. Gayle Objective - Vital Signs/Intake and Output Vital Signs (last 24 hours): Temp Pulse Resp BP Pulse Ox 98.3 F 62 18 120/80 98 09/02/18 18:00 09/02/18 18:00 09/02/18 18:00 09/02/18 18:00 09/02/18 18:00 - Medications Medications: Current Medications Acetaminophen (Tylenol 325mg Tab) 650 mg PO Q6H PRN PRN Reason: Pain, moderate (4-7) Aspirin (Ecotrin) 81 mg PO DAILY [facility] Last Admin: 09/01/18 09:31 Dose: 81 mg Dextrose (Dextrose 50% Inj) 0 ml IV STAT PRN; Protocol PRN Reason: Hypoglycemia Protocol Glimepiride (Amaryl) 4 mg PO BRK [facility] Last Admin: 09/02/18 09:03 Dose: Not Given Dextrose (Dextrose 5% In Water 1000 Ml) 1,000 mls @ 0 mls/hr IV .Q0M PRN; Protocol PRN Reason: Hypoglycemia Protocol Insulin Human Regular (Humulin R High) 0 units SC ACHS [facility]; Protocol Last Admin: 09/02/18 23:05 Dose: Not Given Levothyroxine Sodium (Synthroid) 100 mcg PO 0700 [facility] Last Admin: 09/02/18 09:04 Dose: 100 mcg Losartan Potassium (Cozaar) 50 mg PO DAILY [facility] Last Admin: 09/02/18 09:11 Dose: 50 mg Metoprolol Tartrate (Lopressor) 25 mg PO BID [facility] Last Admin: 09/02/18 17:40 Dose: 25 mg Oxycodone/Acetaminophen (Percocet 5/325 Mg Tab) 0.5 tab PO Q6 [facility] Stop: 09/04/18 12:01 Last Admin: 09/02/18 13:43 Dose: Not Given Sitagliptin Phosphate (Januvia) 100 mg PO DAILY [facility] Last Admin: 09/02/18 09:03 Dose: Not Given Tamsulosin HCl (Flomax) 0.4 mg PO DAILY [facility] Last Admin: 09/02/18 09:04 Dose: 0.4 mg - Labs Labs: 09/03/18 06:00 09/02/18 05:35 PT 11.2 SECONDS (9.4-12.5) 09/03/18 06:00 INR 0.97 09/03/18 06:00 APTT 25.2 Seconds (25.1-36.5) 09/03/18 06:00 - Constitutional Appears: Non-toxic, No Acute Distress - Head Exam Head Exam: NORMAL INSPECTION, NORMOCEPHALIC - Eye Exam Eye Exam: Normal appearance Pupil Exam: NORMAL ACCOMODATION - ENT Exam ENT Exam: Mucous Membranes Moist, Normal Exam - Respiratory Exam Respiratory Exam: Clear to Ausculation Bilateral, NORMAL BREATHING PATTERN - Cardiovascular Exam Cardiovascular Exam: +S1, +S2 - GI/Abdominal Exam GI & Abdominal Exam: Soft, Normal Bowel Sounds - Extremities Exam Extremities Exam: Full ROM, Normal Capillary Refill - Neurological Exam Neurological Exam: Alert, Awake, Oriented x3 - Psychiatric Exam Psychiatric exam: Normal Affect, Normal Mood - Skin Skin Exam: Dry, Normal Color, Warm Assessment and Plan - Assessment and Plan (Free Text) Assessment: A 63 year old male who came in to the ER due to right groin pain. History of coronary artery disease, CABG in 2012, peripheral vascular disease NIDDM,hypertension TURP.Cardiac evaluation was called prior to surgery. Denies chest pain or shortness of breath. ECHO and Stress test done. Stress test normal. Echo done and showed Normal chamber, LVEF 55%, Trace aortic regurgitation, Trace Mitral regurgitation, trace tricuspid regurgitation RVSP 31 mmHg, Trace pulmonic valve regurgitation, no pericardial effusion. Cleared from cardiac standpoint for surgery.Moderate risk considering co-morbidities.No absolute contraindication for surgery. Denies chest pain or shortness of breath. Plan: For inguinal hernia repair today Stress test normal Echo done and showed Normal chamber, LVEF 55% Trace aortic regurgitation Trace Mitral regurgitation trace tricuspid regurgitation RVSP 31 mmHg Trace pulmonic valve regurgitation, no pericardial effusion. Denies chest pain or shortness of breath Cleared for surgery with moderate risk Heart rate controlled Blood pressure controlled Continue current treatment Continue current medications Further recommendation after stress test and echo Will follow up Plan and treatment discussed with Dr. Gayle
[2018-09-03 07:35] LABS: BLOOD UREA NITROGEN 18 mg/dL (7-21); GFR NON-AFRICAN AMERICAN > 60
[2018-09-03] MEDS: Insulin Reg-HIGH-Coverage SC SCH ×4 (08:11→21:26)
[2018-09-03] MEDS ORDERED: Midazolam 2 MG/2 ML VIAL ONE (11:34)
[2018-09-03] MEDS ORDERED: Rocuronium 10 mg/ml (5 ml) ONE (11:34)
[2018-09-03] MEDS ORDERED: Propofol 10 mg/ml Inj (20 ML) ONE (11:35)
[2018-09-03] MEDS ORDERED: Bupivacaine Liposomal Inj 20 ml ONE (12:17)
[2018-09-03] MEDS ORDERED: HYDROmorphone 0.5 mg/0.5 ml ISec IVP PRN (13:11)
--- NOTE | 2018-09-03 13:14 | PCM.SURG1 ---
Surgeon's Initial Post Op Note - Surgeon's Notes Surgeon: Dr. Carmona Career Law Clerk: Dave Cisneros, PGY3; Jonna Saunders, PGY2; Morena Arita OMS3 Pre-Operative Diagnosis: right inguinal hernia Operative Findings: right indirect inguinal hernia Post-Operative Diagnosis: same Operation Performed: right inguinal hernia repair Specimen/Specimens Removed: hernia sac Estimated Blood Loss: EBL {In ML}: 3 Post-Op Condition: Fair Date of Surgery/Procedure: 09/03/18 Time of Surgery/Procedure: 12:00
[2018-09-03] MEDS ORDERED: Lactated Ringer's 1,000 ML IV SCH (13:15)
--- NOTE | 2018-09-03 13:24 | PN ---
DATE: 09/03/2018 REASON FOR CONSULTATION AND FOLLOWUP: Preop risk stratification for inguinal hernia surgery, status post CABG. The patient underwent, yesterday, a stress test and echocardiography. Echocardiography revealed 55 percent EF, trace mitral regurgitation, trace tricuspid regurgitation, RV systolic pressure of 31. The patient had a stress test that revealed essentially normal myocardial perfusion study. No ischemia ejection fraction of 57 percent. The patient is cleared from cardiac point of view to go for surgery with [id number] risk. Discussed with Dr. Shaniqua Manzo, the patient's primary winter sports manager. Explained the patient's condition and the patient was scheduled initially a stress test today. The patient is cleared from the surgery and after the patient had a surgery of inguinal hernia will be followed up with Dr. Manzo. In the interim, continue preop losartan, continue aspirin, continue low-dose beta-shawn. We will follow with you. Thank you Dr. Couch for providing us the opportunity in taking care of the patient, Corby Brooks. Ruth Gayle MD
[2018-09-03] MEDS: Oxycodone/Acetaminophen 5/325 mg Tab PO SCH ×2 (14:20→17:07)
[2018-09-03] MEDS ORDERED: HYDROmorphone 0.5 mg/0.5 ml ISec ONE (14:25)
[2018-09-03] MEDS: Levothyroxine 100 MCG TAB PO SCH (17:09)
[2018-09-04] MEDS: Oxycodone/Acetaminophen 5/325 mg Tab PO SCH ×3 (00:05→11:23)
--- NOTE | 2018-09-04 02:20 | PN ---
DATE: 09/03/2018 SUBJECTIVE: The patient is 63 years old, seen in OR recovery, lethargic but arousable, complains of pain in the surgical site. PHYSICAL EXAMINATION: VITAL SIGNS: He is afebrile, pulse 81, respirations 20, blood pressure 165/90. LUNGS: Bilateral fair airflow. No rhonchi or crackles. HEART: S1 and S2 audible. ABDOMEN: Soft. Palpable discomfort in the right lower quadrant area. NEUROLOGICAL: He is awake, alert, oriented, and communicative. LABORATORY EXAM: WBC 6.5, hemoglobin 11.6, hematocrit 36.1, and platelets 200. Chemistries: Sodium 139, potassium 4.3, chloride 105, CO2 of 26, BUN 18, creatinine 0.9, and blood sugar of 205. ASSESSMENT: 1. Status post right inguinal hernia repair. 2. Hypertension. 3. Mitral regurgitation. 4. Status post stress test, unremarkable. 5. Insulin-dependent diabetes. 6. Hypertension. 7. Coronary artery disease, status post open heart surgery. 8. History of peripheral vascular disease. PLAN: Currently, the patient is on his usual medications including glimepiride, losartan. He is on aspirin and Flomax. We will monitor his blood sugar and as needed. We will follow up labs in a.m. If he remains stable, he will be discharged home in the a.m. Letty Couch MD
[2018-09-04] MEDS: Levothyroxine 100 MCG TAB PO SCH (06:18)
[2018-09-04 06:25] LABS: BASO # 0.01 K/mm3 (0.0-2.0); BASO % 0.1 % (0.0-3.0); EOS # 0.1 (0.0-0.7); GRAN # 5.34 (1.4-6.5); HEMOGLOBIN 11.2 g/dL (14.0-18.0); LYMPH # 2.4 (1.2-3.4); LYMPH % 27.7 % (22.0-35.0); MEAN CELL VOLUME 83.3 fl (80.0-105.0); MEAN CORPUSCULAR HEMOGLOBIN 26.4 pg (25.0-35.0); MEAN CORPUSCULAR HGB CONC 31.7 g/dl (31.0-37.0); MEAN PLATELET VOLUME 11.5 fl (7.0-11.0); MONO # 0.8 (0.1-0.6); MONO % 9.2 % (1.0-6.0); RBC 4.24 10^6/uL (3.5-6.1); RED CELL DISTRIBUTION WIDTH 13.1 % (11.5-14.5); WHITE BLOOD COUNT 8.6 10^3/uL (4.5-11.0)
--- NOTE | 2018-09-04 06:42 | CP.PCM.PN ---
Subjective - Date & Time of Evaluation Date of Evaluation: 09/04/18 Time of Evaluation: 06:35 - Subjective Subjective: Lying in bed, awake, no distress Reason for consultation and follow up:Cardiac evaluation and risk stratification for right inguinal hernia repair, status post right inguinal repair, history of coronary artery disease, post CABG 2011, hypertension Seen and examined by me and Dr. Gayle Objective - Vital Signs/Intake and Output Vital Signs (last 24 hours): Temp Pulse Resp BP Pulse Ox 97.8 F 81 20 165/90 H 99 09/03/18 18:00 09/03/18 18:00 09/03/18 18:00 09/03/18 18:00 09/03/18 18:00 Intake and Output: 09/03/18 09/04/18 18:59 06:59 Intake Total 0 Balance 0 - Medications Medications: Current Medications Acetaminophen (Tylenol 325mg Tab) 650 mg PO Q6H PRN PRN Reason: Pain, moderate (4-7) Aspirin (Ecotrin) 81 mg PO DAILY [facility] Last Admin: 09/03/18 18:45 Dose: 81 mg Dextrose (Dextrose 50% Inj) 0 ml IV STAT PRN; Protocol PRN Reason: Hypoglycemia Protocol Glimepiride (Amaryl) 4 mg PO BRK [facility] Last Admin: 09/03/18 16:59 Dose: 4 mg Dextrose (Dextrose 5% In Water 1000 Ml) 1,000 mls @ 0 mls/hr IV .Q0M PRN; Protocol PRN Reason: Hypoglycemia Protocol Insulin Human Regular (Humulin R High) 0 units SC ACHS [facility]; Protocol Last Admin: 09/03/18 21:26 Dose: Not Given Levothyroxine Sodium (Synthroid) 100 mcg PO 0700 [facility] Last Admin: 09/04/18 06:18 Dose: 100 mcg Losartan Potassium (Cozaar) 50 mg PO DAILY [facility] Last Admin: 09/03/18 16:59 Dose: 50 mg Metoprolol Tartrate (Lopressor) 25 mg PO BID [facility] Last Admin: 09/03/18 18:45 Dose: 25 mg Oxycodone/Acetaminophen (Percocet 5/325 Mg Tab) 0.5 tab PO Q6 [facility] Stop: 09/04/18 12:01 Last Admin: 09/04/18 00:05 Dose: 0.5 tab Sitagliptin Phosphate (Januvia) 100 mg PO DAILY [facility] Last Admin: 09/03/18 16:59 Dose: 100 mg Tamsulosin HCl (Flomax) 0.4 mg PO DAILY [facility] Last Admin: 18 16:59 Dose: 0.4 mg - Labs Labs: 09/04/18 05:45 09/03/18 06:00 PT 11.2 SECONDS (9.4-12.5) 09/03/18 06:00 INR 0.97 09/03/18 06:00 APTT 25.2 Seconds (25.1-36.5) 09/03/18 06:00 - Constitutional Appears: Non-toxic, No Acute Distress - Head Exam Head Exam: NORMAL INSPECTION, NORMOCEPHALIC - Eye Exam Eye Exam: Normal appearance Pupil Exam: NORMAL ACCOMODATION - ENT Exam ENT Exam: Mucous Membranes Moist, Normal Exam - Respiratory Exam Respiratory Exam: Clear to Ausculation Bilateral, NORMAL BREATHING PATTERN - Cardiovascular Exam Cardiovascular Exam: +S1, +S2 Additional comments: No JVD - GI/Abdominal Exam GI & Abdominal Exam: Soft, Normal Bowel Sounds - Extremities Exam Extremities Exam: Full ROM, Normal Capillary Refill Additional comments: right lower abdominal dressing intact - Neurological Exam Neurological Exam: Alert, Awake, Oriented x3 - Psychiatric Exam Psychiatric exam: Normal Affect, Normal Mood - Skin Skin Exam: Dry, Normal Color, Warm Assessment and Plan - Assessment and Plan (Free Text) Assessment: A 63 year old male who came in to the ER due to right groin pain. History of coronary artery disease, CABG in 2011, peripheral vascular disease NIDDM,hypertension TURP.Cardiac evaluation was called prior to surgery. Denies chest pain or shortness of breath. ECHO and Stress test done. Stress test normal. Echo done and showed Normal chamber, LVEF 55%, Trace aortic regurgitation, Trace Mitral regurgitation, trace tricuspid regurgitation RVSP 31 mmHg, Trace pulmonic valve regurgitation, no pericardial effusion. Status post right inguinal hernia repair POD#1 Plan: Status post right inguinal hernia repair POD#1 Denies pain from surgical site Denies chest pain or shortness of breath Cardiac status stable Heart rate controlled Blood pressure controlled Continue current treatment Continue current medications Chart reviewed Possible discharge today Will follow up Plan and treatment discussed with Dr. Gayle
[2018-09-04 07:14] LABS: ALB/GLOB RATIO 1.1 (1.1-1.8); ALBUMIN 3.9 g/dL (3.0-4.8); ALT/SGPT 25 U/L (7-56); AST/SGOT 20 U/L (17-59); BLOOD UREA NITROGEN 13 mg/dL (7-21); CALCIUM 9.3 mg/dL (8.4-10.5); GFR NON-AFRICAN AMERICAN > 60
[2018-09-04] MEDS: Insulin Reg-HIGH-Coverage SC SCH (08:00)
[2018-09-04 08:02] VITALS: BP 134/79; PULSE 71; RESP 18; TEMP 98.4; O2SAT 96
--- NOTE | 2018-09-04 08:05 | CP.PCM.PCO ---
Physician Communication Note - Physician Communication Note Physician Communication Note: OK dc home
--- NOTE | 2018-09-04 10:38 | PN ---
DATE: 09/04/2018 REASON FOR CONSULTATION AND FOLLOWUP: for right inguinal hernia repair status post OR, status post surgery for hernia, history of CABG. The patient denies any chest pain, shortness of breath, or any palpitation. Postop course, the patient appears good. Preop, the patient had stress test and echo essentially normal myocardial perfusion study. Echo shows trace aortic regurgitation, moderate tricuspid regurgitation, trace pulmonary insufficiency. In the postop course, patient is stable. Denies any chest pain, shortness of breath, or any pain in the operative site. RECOMMENDATION: Continue aspirin, continue losartan, continue metoprolol, continue levothyroxine and resume medications as taking before. Upon discharge, patient will be followed up by . Discussed with Dr. Manzo, primary air conditioning unit assembler and also mentioned to the patient that patient upon discharge transfer medical record to Dr. Manzo by signing the release of information. Thank you Dr. Couch for providing us the opportunity in taking care of the patient, Corby Brooks. Today potassium 4.7. Hemoglobin 11.2 and hematocrit 35.3. This note is addition to dictated by nurse practitioner, Lawanda Betts. Ruth Gayle MD
--- NOTE | 2018-09-04 13:36 | DS ---
HISTORY OF PRESENT ILLNESS: The patient is a 63-year-old, seen and examined, doing well, complained of soreness to the surgical site, otherwise doing well. Eating and tolerating. PHYSICAL EXAMINATION: VITAL SIGNS: He is afebrile, pulse 71, respirations 18, and blood pressure 134/79. LUNGS: Bilateral fair airflow. No rhonchi or crackle. HEART: S1, S2 audible. ABDOMEN: Soft and nontender. No rebound. No guarding. NEUROLOGIC: The patient is awake, alert, oriented, communicative and ambulatory. LABORATORY EXAM: WBC is 8.6, hemoglobin 11.0, hematocrit 35.3, and platelets of 179. Chemistry; sodium 139, potassium 4.7, chloride 104, CO2 of 28, BUN 13, creatinine 1.1, blood sugar of 166. ASSESSMENT: 1. Status post right inguinal hernia repair. 2. Non-insulin dependent diabetes. 3. Hypertension. 4. Hyperlipidemia. 5. Mitral regurgitation. 6. Coronary artery disease, status post open heart surgery. PLAN: The patient is clinically stable, doing well. Eating and tolerating. No fever or chills. The patient will be discharged home today. Letty Couch MD
--- NOTE | 2018-09-10 22:39 | OP ---
PROCEDURE DATE: 09/03/2018 SURGEON: Crispin Carmona MD SKOOG MACHINE OPERATOR: Dave Cisneros DO, PGY-3 SECOND CLINICAL APPEALS RN: Jonna Saunders DO, PGY-3 ANESTHESIOLOGIST: Jean-Paul Flores DO PREOPERATIVE DIAGNOSIS: Right inguinal hernia (recently reduced). POSTOPERATIVE DIAGNOSIS: Right indirect inguinal hernia - reduced. PROCEDURE: Right inguinal herniorrhaphy with plug-patch mesh. OPERATIVE INDICATION: The patient is a 63-year-old male who noticed a recent onset of an enlarging right inguinal hernia bulge that became incarcerated and prompted his visit to the [facility] emergency room. He was seen by Dr. Dave Cisneros there, who reduced the hernia and felt something as a residual along the inguinal canal and ordered a CAT scan and determined that the hernia sac contained the patient's appendix. The patient was admitted and underwent cardiac clearance by Dr. Ruth Gayle and after a relatively normal stress test with good ejection fraction over 60%, he was cleared and recommended for inguinal herniorrhaphy. It was described that we would attempt to reduce the incarcerated appendix and remove it allowing a better inguinal hernia repair. Risks, benefits and alternatives with their anticipated outcome were discussed with the patient and he signs the informed consent. OPERATIVE NOTE: The patient was brought to the operating room. He is identified by his wristband and he undergoes the time-out procedure. Following this, he undergoes the induction of general anesthesia and the insertion of an endotracheal tube. Sequential compression devices are placed in his lower extremities and the abdominal area involved is electrically clipped and prepped with Hibiclens chlorhexidine preparation and aseptically draped. Transverse incision is made over the inguinal canal with sharp dissection carried on through to the subcutaneous tissues and the Chanel fascia which is incised and the area over the external oblique is completely exposed, hemostasis is contained with cautery, and the external oblique is opened from the external ring laterally towards the anterior-superior iliac spine. The cord is now mobilized and elevated on a [place] tape and anteromedially the hernia sac is dissected free from the cremaster which is skeletonized and hemostasis is contained with cautery. The sac is now freed open and adhesions to it are bluntly stripped and hemostasis contained again with cautery. The indwelling appendix is easily reduced at this point into the peritoneal cavity and shows no signs of inflammation. A medium PerFix plug is placed into the hernia sac, advanced to the level of the peritoneum and secured to the hernia sac with 2-0 Prolene purse-string suture. The hernia sac is now closed over the perforation and ligated with 2-0 chromic catgut ligature and transected above same and submitted to pathology in formalin. The inguinal birdie is now examined and found relatively intact and a PerFix patch is cut to size, placed in the inguinal birdie and secured around the cord structures with a 2-0 Polysorb suture fixing to the external oblique. Using Exparel local anesthetic, the birdie and retropubic and anterior superior iliac spine are blocked for a 72-hour pain free period. The cord is returned to its normal position and the external oblique is closed with running 2-0 Polysorb suture and the superficial fascia and subcuticular skin are closed with 3-0 Polysorb and a 4-0 Biosyn subcuticular closure. Additional reinforcement with chan is employed on the skin and the skin is now infiltrated with the long-acting Exparel as well. A dry dressing is applied. The patient is awakened, extubated, and transported to the recovery room in a satisfactory condition. The testicle has been tugged to allow the cord to return to its relatively normal position without angulation or fixation in the repair. Sponge, instrument, and suture count were verified as correct. Estimated blood loss was less than 10 mL of blood. Surgical assistants were present throughout from beginning to end and were extremely essential in the dissection and in the repair. This dictation will be electronically signed without being read. Crispin Carmona MD
== END 2018-09-04 14:15 | disposition home or self-care (01) | DRG 352 ==
LOC: ED 20:55 → ERH 09-01 02:24 → 3RSO 09-01 03:13 → OBSVTOIN 09-01 20:22 → 3RSO 09-04 02:54
PROVIDERS: ADMIT Internal Medicine; ATTEND Internal Medicine
PROC: 0YU50JZ Supplement Right Inguinal Region with Synthetic Substitute, Open Approach (ICD-10-PCS; principal; 2018-09-03 11:30)
DX: K40.90 Unilateral inguinal hernia, without obstruction or gangrene, not specified as recurrent (principal); E11.51 Type 2 diabetes mellitus with diabetic peripheral angiopathy without gangrene; I25.10 Atherosclerotic heart disease of native coronary artery without angina pectoris; I10 Essential (primary) hypertension; K57.30 Diverticulosis of large intestine without perforation or abscess without bleeding; K59.00 Constipation, unspecified; E78.5 Hyperlipidemia, unspecified; I08.3 Combined rheumatic disorders of mitral, aortic and tricuspid valves; Z79.82 Long term (current) use of aspirin; Z89.422 Acquired absence of other left toe(s); Z90.79 Acquired absence of other genital organ(s); Z95.1 Presence of aortocoronary bypass graft